=== PATIENT | female | born 1940 ===

== ENCOUNTER 2017-11-08 11:20 | Emergency (ER) | payer MEDICARE, MEDICAID ==
[2017-11-08 11:36] VITALS: PULSE 75; TEMP 97.8
[2017-11-08 12:11] LABS: HCG,QUALITATIVE URINE NEGATIVE (NEGATIVE)
[2017-11-08 12:37] LABS: PH,URINE 6 (5.0-8.0); URINE BILIRUBIN NEGATIVE (NEGATIVE); URINE BLOOD NEGATIVE (NEGATIVE); URINE CLARITY Clear (Clear); URINE COLOR YELLOW (YELLOW); URINE GLUCOSE (UA) NEGATIVE (Normal); URINE LEUKOCYTE ESTERASE NEGATIVE Leu/uL (Negative); URINE NITRATE NEGATIVE (NEGATIVE); URINE PROTEIN NEGATIVE (NEGATIVE); URINE UROBILINOGEN 0.2 mg/dL (0.2-1.0)
[2017-11-08 13:08] LABS: BASO % 0.5 % (0.0-2.0); EOS # 0.2 K/uL (0.0-0.7); EOS % 2.4 % (0.0-4.0); HEMOGLOBIN 12.9 g/dL (11.0-16.0); LYMPH # 2.3 K/uL (1.0-4.3); MEAN CORPUSCULAR HEMOGLOBIN 32.6 pg (27.0-31.0); MEAN CORPUSCULAR HGB CONC 34.7 g/dL (33.0-37.0); MEAN PLATELET VOLUME 8.7 fL (7.2-11.7); MONO # 0.4 K/uL (0.0-0.8); MONO % 4.4 % (0.0-10.0); NEUT # 6.6 K/uL (1.8-7.0); NEUT % 68.7 % (50.0-75.0); RBC 3.96 Mil/uL (3.80-5.20); RED CELL DISTRIBUTION WIDTH 13.3 % (11.5-14.5); WHITE BLOOD COUNT 9.6 K/uL (4.8-10.8)
[2017-11-08 13:22] LABS: ALB/GLOB RATIO 1.3 (1.0-2.1); ALBUMIN 3.9 g/dL (3.5-5.0); ALT/SGPT 19 U/L (9-52); AST/SGOT 22 U/L (14-36); BLOOD UREA NITROGEN 17 mg/dL (7-17); CALCIUM 8.6 mg/dl (8.6-10.4); GFR AFRICAN-AMERICAN > 60; GFR NON-AFRICAN AMERICAN > 60; LIPASE 127 U/L (23-300)
--- NOTE | 2017-11-08 14:36 | C.PDOC ---
History Of Present Illness 77-year-old female, presents to the emergency department with complaints of dysuria and suprapubic discomfort x3 days. Patient has a Hx of prior UTIs and states this feels similar. Denies fever, nausea/vomiting, diarrhea, or any other associated symptoms. No other complaints at this time. Time Seen by Provider: 11/08/17 11:55 Chief Complaint (Nursing): Female Genitourinary History Per: Patient History/Exam Limitations: no limitations Onset/Duration Of Symptoms: Days Current Symptoms Are (Timing): Still Present Severity: Moderate Past Medical History Reviewed: Historical Data, Nursing Documentation, Vital Signs Vital Signs: Last Vital Signs Temp 97.8 F 11/08/17 11:31 Pulse 75 11/08/17 15:01 Resp 16 11/08/17 15:01 BP 136/84 11/08/17 15:01 Pulse Ox 98 11/08/17 15:01 - Medical History PMH: Anxiety, Arthritis, Atrial Fibrillation, Diabetes, HTN, Osteoporosis, Rheumatoid Arthritis, TIA - [facility] Procedures IRRIGATION OF EAR (04/17/13) Family History: States: No Known Family Hx - Social History Hx Tobacco Use: No Hx Alcohol Use: No Hx Substance Use: No - Immunization History Hx Tetanus Toxoid Vaccination: No Hx Influenza Vaccination: No Hx Pneumococcal Vaccination: No Review Of Systems Except As Marked, All Systems Reviewed And Found Negative. Constitutional: Negative for: Fever, Chills Cardiovascular: Negative for: Chest Pain, Palpitations Respiratory: Negative for: Shortness of Breath Gastrointestinal: Negative for: Nausea, Vomiting, Abdominal Pain Genitourinary: Positive for: Dysuria, Pelvic Pain Musculoskeletal: Negative for: Back Pain Neurological: Negative for: Weakness, Numbness Physical Exam - Physical Exam Appears: Non-toxic, No Acute Distress Skin: Warm, Dry, No Rash Head: Atraumatic, Normacephalic Eye(s): bilateral: Normal Inspection, PERRL Nose: Normal Oral Mucosa: Moist Lips: Normal Appearing Neck: Normal ROM Chest: Symmetrical Cardiovascular: Rhythm Regular, No Murmur Respiratory: Normal Breath Sounds, No Accessory Muscle Use Gastrointestinal/Abdominal: Soft, Tenderness (Mild, suprapubic), No Guarding, No Rebound Back: No CVA Tenderness Extremity: Normal ROM Neurological/Psych: Oriented x3, Normal Speech ED Course And Treatment - Laboratory Results Result Diagrams: 11/08/17 13:04 01/31/18 13:04 O2 Sat by Pulse Oximetry: 100 (RA) Pulse Ox Interpretation: Normal Progress Note: Bloodwork and UA ordered and reviewed. Patient treated with PO Tylenol for pain Disposition Counseled Patient/Family Regarding: Studies Performed, Diagnosis, Need For Followup - Disposition Referrals: Kenn Gutierrez MD [Staff Provider] - Disposition: HOME/ ROUTINE Disposition Time: 14:35 Condition: STABLE Additional Instructions: FOLLOW UP WITH YOUR DOCTOR IN 1-2 DAYS USE MEDICATION DIRECTED RETURN TO EMERGENCY ROOM IF SYMPTOMS WORSEN SEGUIMIENTO CON PRESLEY MDICO EN 1-2 LAZCANO USE MEDICAMENTOS SEGN SE INDICA REGRESE AL BARTOLO DE EMERGENCIA SI LOS SNTOMAS EMPEORAN Prescriptions: Nitrofurantoin Macrocrystals [Macrobid] 1 cap PO BID #14 cap Phenazopyridine [Pyridium] 100 mg PO TID #9 tab Instructions: Dysuria (ED) Forms: [employer] (Haitian) Print Language: KITTITIAN - POA Present On Arrival: None - Clinical Impression Clinical Impression: Dysuria - Scribe Statement The provider has reviewed the documentation as recorded by the Scribe (Pili Bruce) All medical record entries made by the Scribe were at my direction and personally dictated by me. I have reviewed the chart and agree that the record accurately reflects my personal performance of the history, physical exam, medical decision making, and the department course for this patient. I have also personally directed, reviewed, and agree with the discharge instructions and disposition.
[2017-11-08 15:01] VITALS: BP 136/84; RESP 16
[2017-11-08 16:11] VITALS: O2SAT 100
== END 2017-11-08 15:01 | disposition home or self-care (01) ==
LOC: C.ER 11:20
DX: R30.0 Dysuria (principal); E11.9 Type 2 diabetes mellitus without complications; I48.91 Unspecified atrial fibrillation; I10 Essential (primary) hypertension; M06.9 Rheumatoid arthritis, unspecified; M81.0 Age-related osteoporosis without current pathological fracture

== ENCOUNTER 2017-12-21 09:26 | Day surgery (SDC) | payer MEDICARE, MEDICAID ==
[2017-12-21] MEDS ORDERED: Propofol 10 mg/ml Inj (20 ML) ONE ×2 (12:55→13:25)
[2017-12-21] MEDS ORDERED: Lactated Ringer's 1,000 ML IV ONE (12:58)
--- NOTE | 2017-12-21 12:58 | CP.SDSHP ---
Same Day Surgery H & P - History Proposed Procedure: colonoscopy Pre-Op Diagnosis: history of colon polyps - Previous Medical/Surgical History Cardiac: Hypertension Endocrine/Metabolic: Diabetes Comments: atrial fibrillation - Allergies Allergies: Allergies No Known Allergies Allergy (Verified 12/21/17 09:51) - Physical Exam General Appearance: NAD Vital Signs: Vital Signs 12/21/17 09:35 Temperature 97.3 F L Pulse Rate 59 L Respiratory 19 Rate Blood Pressure 151/60 H O2 Sat by Pulse 97 Oximetry Mental Status: Alert & Oriented x3 Neuro: WNL Heart: WNL Lungs: WNL GI: WNL - {Optional Preform as Required} Abdomen: WNL - Impression Pt. Evaluated Today:Candidate for Anesthesia & Procedure: Yes - Date & Time Date: 12/21/17 Time: 12:57 Short Stay Discharge - Short Stay Discharge Admitting Diagnosis/Reason for Visit: H/O COLON POLYPS Disposition: HOME/ ROUTINE
[2017-12-21 13:51] VITALS: TEMP 98; O2SAT 100
[2017-12-21 14:15] VITALS: BP 113/42; PULSE 60; RESP 16
== END 2017-12-21 14:38 | disposition home or self-care (01) ==
LOC: C.ENDO 09:26
PROVIDERS: ATTEND Internal Medicine Gastroenterology
DX: D12.2 Benign neoplasm of ascending colon (principal); D12.0 Benign neoplasm of cecum; E11.9 Type 2 diabetes mellitus without complications; I10 Essential (primary) hypertension; I48.91 Unspecified atrial fibrillation; K64.1 Second degree hemorrhoids; K57.30 Diverticulosis of large intestine without perforation or abscess without bleeding
CPT/HCPCS: 45380; 45385; 82948; 88305; J2704; J3010; J7120

== ENCOUNTER 2017-12-24 00:38 | Inpatient (IN) | payer MEDICARE, MEDICAID ==
[2017-12-24] MEDS ORDERED: Sodium Chloride 0.9% 500 ML IV STA (01:05)
[2017-12-24] MEDS ORDERED: HYDROmorphone 1 mg/ml ISec IVP STA ×2 (01:05→03:31)
[2017-12-24] MEDS ORDERED: Sodium Chloride 0.9% 1,000 ML ONE ×2 (01:15→07:48)
[2017-12-24] MEDS ORDERED: HYDROmorphone 1 mg/ml ISec ONE ×3 (01:15→07:48)
[2017-12-24] MEDS ORDERED: Iodixanol 320 MG/ML 100 ML BOTTLE IV ONE (01:25)
[2017-12-24 01:41] LABS: BASO # 0.1 K/uL (0.0-0.2); BASO % 0.5 % (0.0-2.0); EOS # 0.3 K/uL (0.0-0.7); EOS % 2.1 % (0.0-4.0); HEMOGLOBIN 13.1 g/dL (11.0-16.0); LYMPH # 3.7 K/uL (1.0-4.3); LYMPH % 25.8 % (20.0-40.0); MEAN CELL VOLUME 94.2 fL (81.0-99.0); MEAN CORPUSCULAR HEMOGLOBIN 31.4 pg (27.0-31.0); MEAN CORPUSCULAR HGB CONC 33.3 g/dL (33.0-37.0); MEAN PLATELET VOLUME 9.3 fL (7.2-11.7); MONO # 0.8 K/uL (0.0-0.8); MONO % 5.3 % (0.0-10.0); NEUT # 9.5 K/uL (1.8-7.0); NEUT % 66.3 % (50.0-75.0); RBC 4.16 Mil/uL (3.80-5.20); RED CELL DISTRIBUTION WIDTH 13.3 % (11.5-14.5); WHITE BLOOD COUNT 14.3 K/uL (4.8-10.8)
[2017-12-24 01:48] LABS: INR 1.2; PROTHROMBIN TIME 13.2 SECONDS (9.7-12.2)
[2017-12-24 01:51] LABS: CALCIUM 9.1 mg/dl (8.6-10.4); GFR AFRICAN-AMERICAN > 60; GFR NON-AFRICAN AMERICAN > 60; LIPASE 140 U/L (23-300)
[2017-12-24 01:54] LABS: ALB/GLOB RATIO 1.2 (1.0-2.1); ALBUMIN 4.2 g/dL (3.5-5.0); ALT/SGPT 20 U/L (9-52); AST/SGOT 39 U/L (14-36); BLOOD UREA NITROGEN 15 mg/dL (7-17)
--- NOTE | 2017-12-24 03:10 | C.PDOC ---
History Of Present Illness Patient c/o severe abdominal pain and vomiting started 3 days ago after Colonoscopy. Patient sts she had routine colonoscopy by on 12/21/2017. patient developed cramping apain and vatery diarrhea right after the procedure. As per patient diarrhea spontaneously stopped, but abdominal pain continues and got worse couple of hours prior to arrival and associated with nausea/vomiting. Chief Complaint (Nursing): GI Problem History Per: Patient, Family History/Exam Limitations: no limitations Onset/Duration Of Symptoms: Days (3) Current Symptoms Are (Timing): Worse Pain Scale Rating Of: 10 Location Of Pain/Discomfort: Other (generalized) Quality Of Discomfort: "Pain" Associated Symptoms: Nausea, Vomiting Exacerbating Factors: None Past Medical History Reviewed: Historical Data, Nursing Documentation, Vital Signs Vital Signs: Last Vital Signs Temp 97.5 F L 12/24/17 06:17 Pulse 68 12/24/17 06:17 Resp 18 12/24/17 06:17 BP 176/70 H 12/24/17 06:17 Pulse Ox 100 12/24/17 06:47 - Medical History PMH: Anxiety, Arthritis, Atrial Fibrillation, Cardia Arrhythmia (AFIB), Diabetes , HTN, Hypercholesterolemia, Osteoporosis, Rheumatoid Arthritis, TIA Denies: Chronic Kidney Disease Surgical History: Endoscopy - [facility] Procedures IRRIGATION OF EAR (04/17/13) Family History: States: Unknown Family Hx - Social History Hx Tobacco Use: No Hx Alcohol Use: No Hx Substance Use: No - Immunization History Hx Tetanus Toxoid Vaccination: No Hx Influenza Vaccination: No Hx Pneumococcal Vaccination: No Review Of Systems Except As Marked, All Systems Reviewed And Found Negative. Physical Exam - Physical Exam Appears: In Acute Distress (painful, crying from pain) Skin: Normal Color, No Rash Head: Atraumatic, Normacephalic Eye(s): bilateral: Normal Inspection Neck: Normal, Normal ROM Chest: Symmetrical, No Deformity, No Tenderness Cardiovascular: Rhythm Irregular Respiratory: Normal Breath Sounds Gastrointestinal/Abdominal: Tenderness (periumbilical), Guarding Neurological/Psych: Oriented x3, Normal Speech, Normal Cognition ED Course And Treatment - Laboratory Results Result Diagrams: 12/24/17 01:33 12/24/17 01:33 O2 Sat by Pulse Oximetry: 100 - CT Scan/US RUQ US Other Rad Studies (CT/US): Read By Radiologist, Radiology Report Reviewed CT/US Interpretation: EXAM: US Abdomen Limited, Right Upper Quadrant. CLINICAL HISTORY: 77 years old, female; Pain; Abdominal pain; Flank; Right upper quadrant (ruq). TECHNIQUE: Real-time ultrasound of the right upper quadrant with image documentation. COMPARISON: CT - ABD PELVIS IV CONTRAST ONLY 2017-12-24 02:55. FINDINGS: Liver: Unremarkable. No mass. No intrahepatic bile duct dilation. Gallbladder: There is a 12 mm gallstone non- mobile gallbladder neck. Positive Gipson's sign. The. gallbladder wall is mildly thickened measuring 4-5 mm. There may be a trace amount of. pericholecystic fluid. Common bile duct: Mildly dilated common bile duct measuring 6 mm No stones. Pancreas: Unremarkable as visualized. The tail is not well-visualized. Mildly dilated pancreatic duct. measuring 2 mm. Right kidney: Unremarkable measuring 10.5 cm. No stones. No solid mass. No hydronephrosis. IMPRESSION: Findings suggest acute cholecystitis. 12 mm stone lodged in the gallbladder neck. Gallbladder wall. thickening and trace pericholecystic fluid. Mild common bile duct dilation without definite stone. Thank you for allowing us to participate in the care of your patient. Dictated and Authenticated by: Kourtney Duncan MD. 12/24/2017 6:38 AM Eastern Time ( [place] & [place]) CT of abdomen/pelvis Other Rad Studies (CT/US): Read By Radiologist, Radiology Report Reviewed CT/US Interpretation: EXAM: CT Abdomen and Pelvis With Intravenous Contrast. CLINICAL HISTORY: 77 years old, female; Pain; Abdominal pain; Prior surgery; Surgery type: Colonoscopy 2 days ago;. Patient HX: 08-02-13; Additional info: Severe abd pain, S/P colonoscopy x 2 days ago. TECHNIQUE: Axial computed tomography images of the abdomen and pelvis with intravenous contrast. All CT. scans at this facility use one or more dose reduction techniques, viz.: automated exposure control;. ma/kV adjustment per patient size (including targeted exams where dose is matched to indication; i.e. head); or iterative reconstruction technique. Coronal and sagittal reformatted images were created and reviewed. CONTRAST: 100 mL of [id number] administered intravenously. COMPARISON: CT - ABD PELVIS IV CONTRAST ONLY 2013-08-02 04:49. FINDINGS: Lower thorax: A small hiatal hernia is present. ABDOMEN: Liver: Unremarkable. No mass. Gallbladder and bile ducts: 11 mm gallbladder neck stone and mildly distended gallbladder. No. ductal dilation. Pancreas: Unremarkable. No mass. No ductal dilation. Spleen: Unremarkable. No splenomegaly. Adrenals: Unremarkable. No mass. Kidneys and ureters: 2 mm stone in the lower pole of the right kidney.The left kidney is normal. No solid mass. No hydronephrosis. Stomach and bowel: Mild diverticulosis is present in the sigmoid and descending colon. There is a. midline ventral hernia containing small bowel and fat. No bowel obstruction. No mucosal thickening. Appendix: No findings to suggest acute appendicitis. PELVIS: Bladder: Unremarkable. No mass. Reproductive: Unremarkable as visualized. ABDOMEN and PELVIS: Intraperitoneal space: Unremarkable. No free air. No significant fluid collection. Bones/joints: Osteopenia. Levoscoliosis and degenerative changes. No acute fracture. No. dislocation. Vasculature: The vasculature demonstrates diffuse mild atherosclerotic calcification. No abdominal. aortic aneurysm. Lymph nodes: Small retroperitoneal lymph nodes. No enlarged lymph nodes. IMPRESSION: Distended gallbladder and gallbladder neck stone. Clinical correlation with laboratory values. recommended. Followup right upper quadrant ultrasound if clinically indicated. Diverticulosis without acute diverticulitis. Thank you for allowing us to participate in the care of your patient. Dictated and Authenticated by: Kourtney Duncan MD. 12/24/2017 3:48 AM Eastern Time ([place] & [place]). Striking right renal stone. Progress Note: labs, CT abdomen/pelvis with IV contrast, Dilaudid IV x 2, Zofran IV x 2, Zosyn IV. CT and RUQ US shows evidence of acute cholecystitis. 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 Spoke with who wants her to be seen by surgery resident. Disposition - Disposition Disposition: HOSPITALIZED Disposition Time: 07:09 Condition: FAIR Forms: [facility] (Palestinian) - Clinical Impression Clinical Impression: Acute cholecystitis Physician Patient Turnover Patient Signed Over To: April Rojas Handoff Comments: Surgery resident consult, dispo
--- NOTE | 2017-12-24 03:49 | CT ---
EXAM: CT Abdomen and Pelvis With Intravenous Contrast CLINICAL HISTORY: 77 years old, female; Pain; Abdominal pain; Prior surgery; Surgery type: Colonoscopy 2 days ago; Patient HX: 08-02-13; Additional info: Severe abd pain, S/P colonoscopy x 2 days ago TECHNIQUE: Axial computed tomography images of the abdomen and pelvis with intravenous contrast. All CT scans at this facility use one or more dose reduction techniques, viz.: automated exposure control; ma/kV adjustment per patient size (including targeted exams where dose is matched to indication; i.e. head); or iterative reconstruction technique. Coronal and sagittal reformatted images were created and reviewed. CONTRAST: 100 mL of [id number] administered intravenously. COMPARISON: CT - ABD PELVIS IV CONTRAST ONLY 2013-08-02 04:49 FINDINGS: Lower thorax: A small hiatal hernia is present. ABDOMEN: Liver: Unremarkable. No mass. Gallbladder and bile ducts: 11 mm gallbladder neck stone and mildly distended gallbladder. No ductal dilation. Pancreas: Unremarkable. No mass. No ductal dilation. Spleen: Unremarkable. No splenomegaly. Adrenals: Unremarkable. No mass. Kidneys and ureters: 2 mm stone in the lower pole of the right kidney.The left kidney is normal. No solid mass. No hydronephrosis. Stomach and bowel: Mild diverticulosis is present in the sigmoid and descending colon. There is a midline ventral hernia containing small bowel and fat. No bowel obstruction. No mucosal thickening. Appendix: No findings to suggest acute appendicitis. PELVIS: Bladder: Unremarkable. No mass. Reproductive: Unremarkable as visualized. ABDOMEN and PELVIS: Intraperitoneal space: Unremarkable. No free air. No significant fluid collection. Bones/joints: Osteopenia. Levoscoliosis and degenerative changes. No acute fracture. No dislocation. Vasculature: The vasculature demonstrates diffuse mild atherosclerotic calcification. No abdominal aortic aneurysm. Lymph nodes: Small retroperitoneal lymph nodes. No enlarged lymph nodes. IMPRESSION: Distended gallbladder and gallbladder neck stone. Clinical correlation with laboratory values recommended. Followup right upper quadrant ultrasound if clinically indicated. Diverticulosis without acute diverticulitis. Striking right renal stone.
[2017-12-24] MEDS ORDERED: Piperacill/Tazo 3.375gm in Dex 3.375 GM/50 ML BAG IVPB STA (04:57)
[2017-12-24] MEDS: Piperacillin/Tazobact 3.375 gm 100 ML IV STA ×2 (05:00→05:44)
[2017-12-24 05:17] LABS: GRANULAR CAST 1 /lpf (0-1); SQUAMOUS EPITHIAL < 1 /hpf (0-5); URINE BACTERIA RARE (<OCC); URINE BILIRUBIN NEGATIVE (NEGATIVE); URINE BLOOD NEGATIVE (NEGATIVE); URINE CLARITY Hazy (Clear); URINE COLOR Yellow (YELLOW); URINE GLUCOSE (UA) NORMAL (Normal); URINE LEUKOCYTE ESTERASE 2+ Leu/uL (Negative); URINE PROTEIN NEGATIVE (NEGATIVE); URINE UROBILINOGEN NORMAL mg/dL (0.2-1.0)
--- NOTE | 2017-12-24 06:39 | US ---
EXAM: US Abdomen Limited, Right Upper Quadrant CLINICAL HISTORY: 77 years old, female; Pain; Abdominal pain; Flank; Right upper quadrant (ruq) TECHNIQUE: Real-time ultrasound of the right upper quadrant with image documentation. COMPARISON: CT - ABD PELVIS IV CONTRAST ONLY 2017-12-24 02:55 FINDINGS: Liver: Unremarkable. No mass. No intrahepatic bile duct dilation. Gallbladder: There is a 12 mm gallstone non-mobile gallbladder neck. Positive Gipson's sign. The gallbladder wall is mildly thickened measuring 4-5 mm. There may be a trace amount of pericholecystic fluid. Common bile duct: Mildly dilated common bile duct measuring 6 mm No stones. Pancreas: Unremarkable as visualized. The tail is not well-visualized. Mildly dilated pancreatic duct measuring 2 mm. Right kidney: Unremarkable measuring 10.5 cm. No stones. No solid mass. No hydronephrosis. IMPRESSION: Findings suggest acute cholecystitis. 12 mm stone lodged in the gallbladder neck. Gallbladder wall thickening and trace pericholecystic fluid. Mild common bile duct dilation without definite stone.
[2017-12-24] MEDS ORDERED: HYDROmorphone 1 mg/ml ISec IVP PRN (07:40)
[2017-12-24] MEDS ORDERED: Piperacillin/Tazobact 3.375 GM in Sodium Chloride 100 ML IVPB SCH (07:45)
[2017-12-24] MEDS: Sodium Chloride 0.9% 1,000 ML IV SCH ×2 (07:50→17:04)
--- NOTE | 2017-12-24 09:00 | RAD ---
PROCEDURE: CHEST RADIOGRAPH, 1 VIEW HISTORY: abd pain COMPARISON: 05/30/2015 FINDINGS: LUNGS: Clear. PLEURA: No pneumothorax or pleural fluid seen. CARDIOVASCULAR: Normal. OSSEOUS STRUCTURES: No significant abnormalities. VISUALIZED UPPER ABDOMEN: Normal. OTHER FINDINGS: None. IMPRESSION: No active disease.
--- NOTE | 2017-12-24 09:09 | CP.PCM.CON ---
History of Present Illness - History of Present Illness History of Present Illness: SURGERY CONSULT NOTE FOR DR. ROSE 77F presents to [facility] for abdominal pain. Pain began 4 days ago and has been getting progressively worse. Pain is mostly in the right upper quadrant and does not radiate. She states pain is associated with nausea and vomiting, emesis consist of bilious fluid, non bloody. She denies any fevers or chills, denies any change in her bowel movements. She admits that she has not been able to tolerate diet for the last day or so. PMH: Anxiety, Arthritis, Atrial Fibrillation, Cardia Arrhythmia (AFIB), Diabetes , HTN, Hypercholesterolemia, Osteoporosis, Rheumatoid Arthritis, TIA PSH: hysterectomy Social: denies tobacco, alcohol, illicit Allergies: NKDA Past Patient History - Infectious Disease Hx of Infectious Diseases: None - Past Medical History & Family History Past Medical History?: Yes - Past Social History Smoking Status: Never Smoked - CARDIAC Hx Atrial Fibrillation: Yes Hx Cardia Arrhythmia: Yes (AFIB) Hx Hypercholesterolemia: Yes Hx Hypertension: Yes - PULMONARY Hx Respiratory Disorders: No - NEUROLOGICAL Hx Transient Ischemic Attacks (TIA): Yes - HEENT Hx HEENT Problems: No - RENAL Hx Chronic Kidney Disease: No - ENDOCRINE/METABOLIC Hx Endocrine Disorders: Yes Hx Diabetes Mellitus Type 2: Yes - HEMATOLOGICAL/ONCOLOGICAL Hx Blood Disorders: No - INTEGUMENTARY Hx Dermatological Problems: No - MUSCULOSKELETAL/RHEUMATOLOGICAL Hx Arthritis: Yes Hx Osteoporosis: Yes Hx Rheumatoid Arthritis: Yes - GASTROINTESTINAL Hx Gastrointestinal Disorders: Yes Hx Gastroesophageal Reflux: Yes - GENITOURINARY/GYNECOLOGICAL Hx Genitourinary Disorders: No - PSYCHIATRIC Hx Anxiety: Yes Hx Substance Use: No - SURGICAL HISTORY Hx Surgeries: Yes Hx Herniorrhaphy: Yes Hx Hysterectomy: Yes (20 years ago) Hx Tubal Ligation: Yes Other/Comment: COLONSCOPY - ANESTHESIA Hx Anesthesia: Yes Hx Anesthesia Reactions: Yes (VOMITING) Hx Malignant Hyperthermia: No Meds Allergies/Adverse Reactions: Allergies Allergy/AdvReac Type Severity Reaction Status Date / Time No Known Allergies Allergy Verified 12/24/17 00:54 - Medications Medications: Current Medications Hydromorphone HCl (Dilaudid) 1 mg IVP Q4H PRN PRN Reason: Pain, severe (8-10) Last Admin: 12/24/17 07:50 Dose: 1 mg Sodium Chloride (Sodium Chloride 0.9%) 1,000 mls @ 100 mls/hr IV .Q10H MARCO Last Admin: 12/24/17 07:50 Dose: 100 mls/hr Piperacillin Sod/Tazobactam Sod (Zosyn 3.375 Gm Iv Premix) 3.375 gm in 50 mls @ 100 mls/hr IVPB Q8H MARCO PRN Reason: Protocol Ondansetron HCl (Zofran Inj) 4 mg IVP Q4 PRN PRN Reason: Nausea/Vomiting Last Admin: 12/24/17 07:50 Dose: 4 mg Pantoprazole Sodium (Protonix Inj) 40 mg IVP DAILY [facility] Physical Exam - Constitutional Appears: Well, Non-toxic, No Acute Distress Additional comments: uncomfortable due to pain - Eye Exam Eye Exam: EOMI, PERRL - ENT Exam ENT Exam: Mucous Membranes Moist - Respiratory Exam Respiratory Exam: Clear to Auscultation Bilateral, NORMAL BREATHING PATTERN - Cardiovascular Exam Cardiovascular Exam: REGULAR RHYTHM, +S1, +S2 - GI/Abdominal Exam GI & Abdominal Exam: Soft, Tenderness (moderate pain especially in the RUQ). absent: Distended, Firm, Guarding, Rebound, Rigid - Extremities Exam Extremities exam: Negative for: pedal edema, tenderness - Neurological Exam Neurological exam: Alert, Oriented x3 - Psychiatric Exam Psychiatric exam: Normal Affect, Normal Mood - Skin Skin Exam: Dry, Intact, Normal Color, Warm Results - Vital Signs Recent Vital Signs: Last Vital Signs Temp 97.6 F 12/24/17 07:33 Pulse 69 12/24/17 07:33 Resp 20 12/24/17 07:33 BP 159/77 H 12/24/17 07:33 Pulse Ox 98 12/24/17 07:33 - Labs Result Diagrams: 12/24/17 01:33 12/24/17 01:33 Labs: Laboratory Results - last 24 hr 12/24/17 12/24/17 12/24/17 01:33 01:33 01:33 WBC 14.3 H RBC 4.16 Hgb 13.1 Hct 39.2 MCV 94.2 MCH 31.4 H MCHC 33.3 RDW 13.3 Plt Count 322 MPV 9.3 Neut % (Auto) 66.3 Lymph % (Auto) 25.8 [place] % (Auto) 5.3 Eos % (Auto) 2.1 Baso % (Auto) 0.5 Neut # (Auto) 9.5 H Lymph # (Auto) 3.7 [place] # (Auto) 0.8 Eos # (Auto) 0.3 Baso # (Auto) 0.1 PT 13.2 H INR 1.2 APTT 34 Sodium 139 Potassium 5.8 H Chloride 103 Carbon Dioxide 22 Anion Gap 21 H BUN 15 Creatinine 0.5 L Est GFR ( Amer) > 60 Est GFR (Non-Af Amer) > 60 Random Glucose 182 H Calcium 9.1 Total Bilirubin 0.9 AST 39 H D ALT 20 Alkaline Phosphatase 68 Total Protein 7.8 Albumin 4.2 Globulin 3.6 Albumin/Globulin Ratio 1.2 Lipase 140 Urine Color Urine Clarity Urine pH Ur Specific [place] Urine Protein Urine Glucose (UA) Urine Ketones Urine Blood Urine Nitrate Urine Bilirubin Urine Urobilinogen Ur Leukocyte Esterase Urine WBC (Auto) Urine RBC (Auto) Ur Squamous Epith Cells Urine Bacteria Hyaline Casts Granular Casts (Auto) 12/24/17 05:07 WBC RBC Hgb Hct MCV MCH MCHC RDW Plt Count MPV Neut % (Auto) Lymph % (Auto) [place] % (Auto) Eos % (Auto) Baso % (Auto) Neut # (Auto) Lymph # (Auto) [place] # (Auto) Eos # (Auto) Baso # (Auto) PT INR APTT Sodium Potassium Chloride Carbon Dioxide Anion Gap BUN Creatinine Est GFR ( Amer) Est GFR (Non-Af Amer) Random Glucose Calcium Total Bilirubin AST ALT Alkaline Phosphatase Total Protein Albumin Globulin Albumin/Globulin Ratio Lipase Urine Color Yellow Urine Clarity Hazy Urine pH 5.0 Ur Specific [place] 1.033 H Urine Protein Negative Urine Glucose (UA) Normal Urine Ketones Trace Urine Blood Negative Urine Nitrate Negative Urine Bilirubin Negative Urine Urobilinogen Normal Ur Leukocyte Esterase 2+ H Urine WBC (Auto) 57 H Urine RBC (Auto) 1 Ur Squamous Epith Cells < 1 Urine Bacteria Rare Hyaline Casts 6-10 H Granular Casts (Auto) 1 Assessment & Plan - Assessment and Plan (Free Text) Assessment: 77F presents with acute cholecystitis CT: Distended GB, stone at neck of gallbladder US: Acute cholecystitis, mild CBD dilatation, no definitely choledocho Plan: NPO, Pain control IVF, Antibiotics Repeat labs tomm AM Cardiac consult - recent catherization Further recs discuss with Dr. Eladio Christianson, PGY2
[2017-12-24 09:40] LABS: BLOOD UREA NITROGEN 11 mg/dL (7-17); CALCIUM 7.8 mg/dl (8.6-10.4); GFR AFRICAN-AMERICAN > 60; GFR NON-AFRICAN AMERICAN > 60
--- NOTE | 2017-12-24 09:46 | CP.PCM.HP ---
<Sandi Hartman - Last Filed: 12/24/17 16:24> History of Present Illness - History of Present Illness History of Present Illness: CC: Abdominal pain 77 year old female with past medical history hypertension, diabetes, hyperlipidemia, anxiety, and atrial fibrillation on Eliquis presents to the ED with abdominal pain and vomiting. History per patient's daughter, patient's abdominal pain started on 12/21/17 shortly after having a colonoscopy with Dr. Friend. The pain is located right upper abdominal quadrant and epigastrium. Patient tried taking over the counter Pepto-Bismol without relief. The abdominal pain became worse last night and the patient started vomiting several times which prompted patient to come to the ED. Daughter reports the vomits were yellow in color, no blood were seen. Patient denies having fever, headache , shortness of breath, chest pain, or urinary symptoms. Patient recently had a cardiac cath at [facility] with Dr. Issa. Daughter [phone] PMD: Dr. Gutierrez PMHx: TIA, HTN, DM, anxiety, hyperlipidemia PSHx: hernia repair, hysterectomy, tubal ligation Allergy: none Social: denies tobacco, alcohol or drug use Home Meds: eliquis, coreg, amaryl, omerazole, pravastatin, tramadol, diovan, ambien Present on Admission - Present on Admission Any Indicators Present on Admission: No Review of Systems - Constitutional Constitutional: As Per HPI. absent: Chills, Fever - EENT Eyes: As Per HPI. absent: Blurred Vision, Change in Vision, Irritation Ears: As Per HPI. absent: Decreased Hearing, Dizziness Nose/Mouth/Throat: As Per HPI. absent: Epistaxis, Nasal Congestion, Nasal Trauma - Cardiovascular Cardiovascular: As Per HPI. absent: Chest Pain, Syncope - Respiratory Respiratory: As Per HPI. absent: Cough, Dyspnea, Wheezing - Gastrointestinal Gastrointestinal: As Per HPI, Abdominal Pain, Nausea, Vomiting. absent: Diarrhea, Heartburn - Genitourinary Genitourinary: As Per HPI. absent: Flank Pain, Hematuria, Urinary Frequency - Musculoskeletal Musculoskeletal: As Per HPI. absent: Deformity, Tingling - Integumentary Integumentary: As Per HPI. absent: Acne, Erythema - Neurological Neurological: As Per HPI. absent: Abnormal Gait, Abnormal Hearing, Dizziness - Psychiatric Psychiatric: As Per HPI. absent: Confusion, Hallucinations - Endocrine Endocrine: As Per HPI Past Patient History - Infectious Disease Hx of Infectious Diseases: None - Past Medical History & Family History Past Medical History?: Yes - Past Social History Smoking Status: Never Smoked - CARDIAC Hx Atrial Fibrillation: Yes Hx Cardia Arrhythmia: Yes (AFIB) Hx Hypercholesterolemia: Yes Hx Hypertension: Yes - PULMONARY Hx Respiratory Disorders: No - NEUROLOGICAL Hx Transient Ischemic Attacks (TIA): Yes - HEENT Hx HEENT Problems: No - RENAL Hx Chronic Kidney Disease: No - ENDOCRINE/METABOLIC Hx Endocrine Disorders: Yes Hx Diabetes Mellitus Type 2: Yes - HEMATOLOGICAL/ONCOLOGICAL Hx Blood Disorders: No - INTEGUMENTARY Hx Dermatological Problems: No - MUSCULOSKELETAL/RHEUMATOLOGICAL Hx Arthritis: Yes Hx Osteoporosis: Yes Hx Rheumatoid Arthritis: Yes - GASTROINTESTINAL Hx Gastrointestinal Disorders: Yes Hx Gastroesophageal Reflux: Yes - GENITOURINARY/GYNECOLOGICAL Hx Genitourinary Disorders: No - PSYCHIATRIC Hx Anxiety: Yes Hx Substance Use: No - SURGICAL HISTORY Hx Surgeries: Yes Hx Herniorrhaphy: Yes Hx Hysterectomy: Yes (20 years ago) Hx Tubal Ligation: Yes Other/Comment: COLONSCOPY - ANESTHESIA Hx Anesthesia: Yes Hx Anesthesia Reactions: Yes (VOMITING) Hx Malignant Hyperthermia: No Meds Allergies/Adverse Reactions: Allergies Allergy/AdvReac Type Severity Reaction Status Date / Time No Known Allergies Allergy Verified 12/24/17 00:54 Physical Exam - Constitutional Appears: No Acute Distress - Head Exam Head Exam: ATRAUMATIC - Eye Exam Eye Exam: EOMI, Normal appearance - ENT Exam ENT Exam: Mucous Membranes Moist - Respiratory Exam Respiratory Exam: Clear to Auscultation Bilateral, NORMAL BREATHING PATTERN. absent: Respiratory Distress - Cardiovascular Exam Cardiovascular Exam: +S1, +S2. absent: Diastolic murmur, Systolic Murmur - GI/Abdominal Exam GI & Abdominal Exam: Soft, Tenderness. absent: Distended - Extremities Exam Extremities exam: Positive for: normal inspection - Neurological Exam Neurological exam: Alert, Oriented x3 - Psychiatric Exam Psychiatric exam: Normal Affect, Normal Mood - Skin Skin Exam: Dry, Warm Results - Vital Signs Recent Vital Signs: Last Vital Signs Temp 97.6 F 12/24/17 07:33 Pulse 68 12/24/17 09:15 Resp 20 12/24/17 09:15 BP 150/72 12/24/17 09:15 Pulse Ox 98 12/24/17 09:15 - Labs Result Diagrams: 12/24/17 01:33 12/24/17 09:11 Labs: Laboratory Results - last 24 hr 12/24/17 12/24/17 12/24/17 01:33 01:33 01:33 WBC 14.3 H RBC 4.16 Hgb 13.1 Hct 39.2 MCV 94.2 MCH 31.4 H MCHC 33.3 RDW 13.3 Plt Count 322 MPV 9.3 Neut % (Auto) 66.3 Lymph % (Auto) 25.8 [place] % (Auto) 5.3 Eos % (Auto) 2.1 Baso % (Auto) 0.5 Neut # (Auto) 9.5 H Lymph # (Auto) 3.7 [place]ran # (Auto) 0.8 Eos # (Auto) 0.3 Baso # (Auto) 0.1 PT 13.2 H INR 1.2 APTT 34 Sodium 139 Potassium 5.8 H Chloride 103 Carbon Dioxide 22 Anion Gap 21 H BUN 15 Creatinine 0.5 L Est GFR ( Amer) > 60 Est GFR (Non-Af Amer) > 60 Random Glucose 182 H Calcium 9.1 Total Bilirubin 0.9 AST 39 H D ALT 20 Alkaline Phosphatase 68 Total Protein 7.8 Albumin 4.2 Globulin 3.6 Albumin/Globulin Ratio 1.2 Lipase 140 Urine Color Urine Clarity Urine pH Ur Specific [place] Urine Protein Urine Glucose (UA) Urine Ketones Urine Blood Urine Nitrate Urine Bilirubin Urine Urobilinogen Ur Leukocyte Esterase Urine WBC (Auto) Urine RBC (Auto) Ur Squamous Epith Cells Urine Bacteria Hyaline Casts Granular Casts (Auto) 12/24/17 12/24/17 05:07 09:11 WBC RBC Hgb Hct MCV MCH MCHC RDW Plt Count MPV Neut % (Auto) Lymph % (Auto) [place] % (Auto) Eos % (Auto) Baso % (Auto) Neut # (Auto) Lymph # (Auto) [place] # (Auto) Eos # (Auto) Baso # (Auto) PT INR APTT Sodium 138 Potassium 4.0 Chloride 105 Carbon Dioxide 25 Anion Gap 13 BUN 11 Creatinine 0.4 L Est GFR ( Amer) > 60 Est GFR (Non-Af Amer) > 60 Random Glucose 133 H Calcium 7.8 L Total Bilirubin AST ALT Alkaline Phosphatase Total Protein Albumin Globulin Albumin/Globulin Ratio Lipase Urine Color Yellow Urine Clarity Hazy Urine pH 5.0 Ur Specific [place] 1.033 H Urine Protein Negative Urine Glucose (UA) Normal Urine Ketones Trace Urine Blood Negative Urine Nitrate Negative Urine Bilirubin Negative Urine Urobilinogen Normal Ur Leukocyte Esterase 2+ H Urine WBC (Auto) 57 H Urine RBC (Auto) 1 Ur Squamous Epith Cells < 1 Urine Bacteria Rare Hyaline Casts 6-10 H Granular Casts (Auto) 1 Assessment & Plan - Assessment and Plan (Free Text) Assessment: Acute cholecystitis -Abd U/S showed findings suggesting acute cholecystitis. Mild common bile duct dilation without definite stone -Abd CT showed distended gallbladder and gallbladder neck stone (see report) -Dilaudid 1mg IV Q4 prn -NS @100ml/hr -Zofran 4mg IV Q4 prn -Zosyn 3.375gm IV Q8 -Surgery consult, Dr. Hendricks help appreciated -NPO, planning for OR -Cardiac clearance by Dr. Issa: cleared for surgery low to intermediate cardiac risk Leukocytosis -WBC 14.3 -Afebrile -Zosyn 3.375gm IV Q8 -Follow up blood and urine cultures DM -FS ACHS -ISS Prophylactic measures -Protonix IV -SCD -Hold home meds due NPO for surgery Discussed with attending Dr. Arias <Renny Arias - Last Filed: 12/24/17 19:09> Results - Vital Signs Recent Vital Signs: Last Vital Signs Temp 97.7 F 12/24/17 15:00 Pulse 61 12/24/17 15:00 Resp 20 12/24/17 15:00 BP 129/61 12/24/17 15:00 Pulse Ox 96 12/24/17 15:00 - Labs Result Diagrams: 12/24/17 01:33 12/24/17 09:11 Labs: Laboratory Results - last 24 hr 12/24/17 12/24/17 12/24/17 01:33 01:33 01:33 WBC 14.3 H RBC 4.16 Hgb 13.1 Hct 39.2 MCV 94.2 MCH 31.4 H MCHC 33.3 RDW 13.3 Plt Count 322 MPV 9.3 Neut % (Auto) 66.3 Lymph % (Auto) 25.8 [place]ran % (Auto) 5.3 Eos % (Auto) 2.1 Baso % (Auto) 0.5 Neut # (Auto) 9.5 H Lymph # (Auto) 3.7 [place] # (Auto) 0.8 Eos # (Auto) 0.3 Baso # (Auto) 0.1 PT 13.2 H INR 1.2 APTT 34 Sodium 139 Potassium 5.8 H Chloride 103 Carbon Dioxide 22 Anion Gap 21 H BUN 15 Creatinine 0.5 L Est GFR ( Amer) > 60 Est GFR (Non-Af Amer) > 60 POC Glucose (mg/dL) Random Glucose 182 H Calcium 9.1 Total Bilirubin 0.9 AST 39 H D ALT 20 Alkaline Phosphatase 68 Total Protein 7.8 Albumin 4.2 Globulin 3.6 Albumin/Globulin Ratio 1.2 Lipase 140 Urine Color Urine Clarity Urine pH Ur Specific [place] Urine Protein Urine Glucose (UA) Urine Ketones Urine Blood Urine Nitrate Urine Bilirubin Urine Urobilinogen Ur Leukocyte Esterase Urine WBC (Auto) Urine RBC (Auto) Ur Squamous Epith Cells Urine Bacteria Hyaline Casts Granular Casts (Auto) 12/24/17 12/24/17 12/24/17 05:07 09:11 11:30 WBC RBC Hgb Hct MCV MCH MCHC RDW Plt Count MPV Neut % (Auto) Lymph % (Auto) [place] % (Auto) Eos % (Auto) Baso % (Auto) Neut # (Auto) Lymph # (Auto) [place] # (Auto) Eos # (Auto) Baso # (Auto) PT INR APTT Sodium 138 Potassium 4.0 Chloride 105 Carbon Dioxide 25 Anion Gap 13 BUN 11 Creatinine 0.4 L Est GFR ( Amer) > 60 Est GFR (Non-Af Amer) > 60 POC Glucose (mg/dL) 107 Random Glucose 133 H Calcium 7.8 L Total Bilirubin AST ALT Alkaline Phosphatase Total Protein Albumin Globulin Albumin/Globulin Ratio Lipase Urine Color Yellow Urine Clarity Hazy Urine pH 5.0 Ur Specific [place] 1.033 H Urine Protein Negative Urine Glucose (UA) Normal Urine Ketones Trace Urine Blood Negative Urine Nitrate Negative Urine Bilirubin Negative Urine Urobilinogen Normal Ur Leukocyte Esterase 2+ H Urine WBC (Auto) 57 H Urine RBC (Auto) 1 Ur Squamous Epith Cells < 1 Urine Bacteria Rare Hyaline Casts 6-10 H Granular Casts (Auto) 1 12/24/17 16:21 WBC RBC Hgb Hct MCV MCH MCHC RDW Plt Count MPV Neut % (Auto) Lymph % (Auto) [place]ran % (Auto) Eos % (Auto) Baso % (Auto) Neut # (Auto) Lymph # (Auto) [place]ran # (Auto) Eos # (Auto) Baso # (Auto) PT INR APTT Sodium Potassium Chloride Carbon Dioxide Anion Gap BUN Creatinine Est GFR ( Amer) Est GFR (Non-Af Amer) POC Glucose (mg/dL) 90 Random Glucose Calcium Total Bilirubin AST ALT Alkaline Phosphatase Total Protein Albumin Globulin Albumin/Globulin Ratio Lipase Urine Color Urine Clarity Urine pH Ur Specific [place] Urine Protein Urine Glucose (UA) Urine Ketones Urine Blood Urine Nitrate Urine Bilirubin Urine Urobilinogen Ur Leukocyte Esterase Urine WBC (Auto) Urine RBC (Auto) Ur Squamous Epith Cells Urine Bacteria Hyaline Casts Granular Casts (Auto) Attending/Attestation - Attestation I have personally seen and examined this patient.: Yes I have fully participated in the care of the patient.: Yes I have reviewed all pertinent clinical information: Yes Notes (Text): patient was seen and examined in the ER. Discussed with her daughter at bedside. patient was complaining of abdominal pain and nausea.s/p colonoscopy. Afib was on Eliquis which was held for colonoscopy and resumed yesterday. Took one dose last night She is afebrile,has wbc ,urine with wbc and leukocyte esterase.follow cultures on examination she has soft abdomen, epigastria tenderness,no guarding,no rigidity. continue zosyn,NPO,follow surgery. DR issa for cardiology clearance. GI consult Discussed with the resident. I agree withe the documentation of the resident's assessment and the plan 12/24/17 19:09
[2017-12-24] MEDS: (Novolin R) Insulin Human Regular 100 units/ml vial SC SCH ×3 (12:26→22:07)
[2017-12-24] MEDS: HYDROmorphone 0.5 mg/0.5 ml ISec IVP PRN ×2 (12:26→16:48)
--- NOTE | 2017-12-24 12:42 | CP.PCM.CON ---
<Darlene Pyle - Last Filed: 12/24/17 12:48> History of Present Illness - History of Present Illness History of Present Illness: PGY4 Initial GI Consultation Laina 77F with history of HTN, DM, hyperlipidemia, atrial fibrillation on eliquis, diverticulosis, GERD, and Colon polyps who presented for abd pain. Pt states that the onset was a day after the colonoscopy. Her colonoscopy on revealed a 8mm polyp in the ascending and 3mm polyp in the cecum with diverticulosis throughout. Pain is mostly in the right upper quadrant and does not radiate. She states pain is associated with nausea and vomiting, emesis consist of bilious fluid, non bloody. She denies any fevers or chills, denies any change in her bowel movements. Ct scan revealed a stone at the gallbladder neck and dilatation of the GB. Her LFTs were initially normal, but today her ALT slightly increased. No evidence of CBD dilation on CT. We first established care as an outpt on 09/14/2017. She initially presented to the office with complaints of chronic diarrhea and left sided abdominal pain. Pt reports that she has had unintentional 10lb weight loss in one year, denies loss of appetite, nause or vomiting. Pt reports she has had diarrhea for many years assoicted with abdominal pain which is relieved after defecation. She also had a colonoscopy 3 years ago which showed "pre cancerous polyps" as per patient and was asked to repeat in 3 years. PMH: Anxiety, Arthritis, Atrial Fibrillation, Cardia Arrhythmia (AFIB), Diabetes , HTN, Hypercholesterolemia, Osteoporosis, Rheumatoid Arthritis, TIA PSH: hysterectomy Social: denies tobacco, alcohol, illicit Allergies: NKDA Past Patient History - Infectious Disease Hx of Infectious Diseases: None - Past Medical History & Family History Past Medical History?: Yes - Past Social History Smoking Status: Never Smoked - CARDIAC Hx Atrial Fibrillation: Yes Hx Cardia Arrhythmia: Yes (AFIB) Hx Hypercholesterolemia: Yes Hx Hypertension: Yes - PULMONARY Hx Respiratory Disorders: No - NEUROLOGICAL Hx Transient Ischemic Attacks (TIA): Yes - HEENT Hx HEENT Problems: No - RENAL Hx Chronic Kidney Disease: No - ENDOCRINE/METABOLIC Hx Endocrine Disorders: Yes Hx Diabetes Mellitus Type 2: Yes - HEMATOLOGICAL/ONCOLOGICAL Hx Blood Disorders: No - INTEGUMENTARY Hx Dermatological Problems: No - MUSCULOSKELETAL/RHEUMATOLOGICAL Hx Arthritis: Yes Hx Osteoporosis: Yes Hx Rheumatoid Arthritis: Yes - GASTROINTESTINAL Hx Gastrointestinal Disorders: Yes Hx Gastroesophageal Reflux: Yes - GENITOURINARY/GYNECOLOGICAL Hx Genitourinary Disorders: No - PSYCHIATRIC Hx Anxiety: Yes Hx Substance Use: No - SURGICAL HISTORY Hx Surgeries: Yes Hx Herniorrhaphy: Yes Hx Hysterectomy: Yes (20 years ago) Hx Tubal Ligation: Yes Other/Comment: COLONSCOPY - ANESTHESIA Hx Anesthesia: Yes Hx Anesthesia Reactions: Yes (VOMITING) Hx Malignant Hyperthermia: No Meds Allergies/Adverse Reactions: Allergies Allergy/AdvReac Type Severity Reaction Status Date / Time No Known Allergies Allergy Verified 12/24/17 00:54 - Medications Medications: Current Medications Hydromorphone HCl (Dilaudid) 1 mg IVP Q4H PRN PRN Reason: Pain, severe (8-10) Last Admin: 12/24/17 12:26 Dose: 1 mg Sodium Chloride (Sodium Chloride 0.9%) 1,000 mls @ 100 mls/hr IV .Q10H [facility] Last Admin: 12/24/17 07:50 Dose: 100 mls/hr Piperacillin Sod/Tazobactam Sod (Zosyn 3.375 Gm Iv Premix) 3.375 gm in 50 mls @ 100 mls/hr IVPB Q8H [facility] PRN Reason: Protocol Insulin Human Regular (Novolin R) 0 unit SC ACHS [facility] PRN Reason: Protocol Last Admin: 12/24/17 12:26 Dose: Not Given Ondansetron HCl (Zofran Inj) 4 mg IVP Q4 PRN PRN Reason: Nausea/Vomiting Last Admin: 12/24/17 07:50 Dose: 4 mg Pantoprazole Sodium (Protonix Inj) 40 mg IVP DAILY [facility] Last Admin: 12/24/17 09:23 Dose: 40 mg Physical Exam - Constitutional Appears: Non-toxic, No Acute Distress - Head Exam Head Exam: ATRAUMATIC, NORMOCEPHALIC - Eye Exam Eye Exam: Normal appearance - ENT Exam ENT Exam: Mucous Membranes Moist, Normal Exam - Neck Exam Neck exam: Positive for: Normal Inspection - Respiratory Exam Respiratory Exam: Clear to Auscultation Bilateral, NORMAL BREATHING PATTERN. absent: Rales, Rhonchi, Wheezes, Respiratory Distress - Cardiovascular Exam Cardiovascular Exam: REGULAR RHYTHM, +S1, +S2 - GI/Abdominal Exam GI & Abdominal Exam: Normal Bowel Sounds, Tenderness (epigastric). absent: Distended, Firm, Guarding, Hernia, Rebound, Rigid - Extremities Exam Extremities exam: Negative for: joint swelling, pedal edema - Neurological Exam Neurological exam: Alert, Oriented x3 - Psychiatric Exam Psychiatric exam: Normal Affect, Normal Mood - Skin Skin Exam: Dry, Intact, Normal Color, Warm Results - Vital Signs Recent Vital Signs: Last Vital Signs Temp 97.6 F 12/24/17 07:33 Pulse 68 12/24/17 09:15 Resp 20 12/24/17 09:15 BP 150/72 12/24/17 09:15 Pulse Ox 98 12/24/17 09:15 - Labs Result Diagrams: 12/24/17 01:33 12/24/17 09:11 Labs: Laboratory Results - last 24 hr 12/24/17 12/24/17 12/24/17 01:33 01:33 01:33 WBC 14.3 H RBC 4.16 Hgb 13.1 Hct 39.2 MCV 94.2 MCH 31.4 H MCHC 33.3 RDW 13.3 Plt Count 322 MPV 9.3 Neut % (Auto) 66.3 Lymph % (Auto) 25.8 [place] % (Auto) 5.3 Eos % (Auto) 2.1 Baso % (Auto) 0.5 Neut # (Auto) 9.5 H Lymph # (Auto) 3.7 [place] # (Auto) 0.8 Eos # (Auto) 0.3 Baso # (Auto) 0.1 PT 13.2 H INR 1.2 APTT 34 Sodium 139 Potassium 5.8 H Chloride 103 Carbon Dioxide 22 Anion Gap 21 H BUN 15 Creatinine 0.5 L Est GFR ( Amer) > 60 Est GFR (Non-Af Amer) > 60 POC Glucose (mg/dL) Random Glucose 182 H Calcium 9.1 Total Bilirubin 0.9 AST 39 H D ALT 20 Alkaline Phosphatase 68 Total Protein 7.8 Albumin 4.2 Globulin 3.6 Albumin/Globulin Ratio 1.2 Lipase 140 Urine Color Urine Clarity Urine pH Ur Specific [place] Urine Protein Urine Glucose (UA) Urine Ketones Urine Blood Urine Nitrate Urine Bilirubin Urine Urobilinogen Ur Leukocyte Esterase Urine WBC (Auto) Urine RBC (Auto) Ur Squamous Epith Cells Urine Bacteria Hyaline Casts Granular Casts (Auto) 12/24/17 12/24/17 12/24/17 05:07 09:11 11:30 WBC RBC Hgb Hct MCV MCH MCHC RDW Plt Count MPV Neut % (Auto) Lymph % (Auto) [place] % (Auto) Eos % (Auto) Baso % (Auto) Neut # (Auto) Lymph # (Auto) [place] # (Auto) Eos # (Auto) Baso # (Auto) PT INR APTT Sodium 138 Potassium 4.0 Chloride 105 Carbon Dioxide 25 Anion Gap 13 BUN 11 Creatinine 0.4 L Est GFR ( Amer) > 60 Est GFR (Non-Af Amer) > 60 POC Glucose (mg/dL) 107 Random Glucose 133 H Calcium 7.8 L Total Bilirubin AST ALT Alkaline Phosphatase Total Protein Albumin Globulin Albumin/Globulin Ratio Lipase Urine Color Yellow Urine Clarity Hazy Urine pH 5.0 Ur Specific [place] 1.033 H Urine Protein Negative Urine Glucose (UA) Normal Urine Ketones Trace Urine Blood Negative Urine Nitrate Negative Urine Bilirubin Negative Urine Urobilinogen Normal Ur Leukocyte Esterase 2+ H Urine WBC (Auto) 57 H Urine RBC (Auto) 1 Ur Squamous Epith Cells < 1 Urine Bacteria Rare Hyaline Casts 6-10 H Granular Casts (Auto) 1 Assessment & Plan - Assessment and Plan (Free Text) Assessment: Laina 77F with history of HTN, DM, hyperlipidemia, atrial fibrillation on eliquis, diverticulosis, GERD, and Colon polyps who presented for abd pain. On CT scan, she is found to have a dilated GB with a stone at the neck of the GB: U /S 12mm stone at GB neck and GB wall thickening; CBD: 6mm Acute Cholecystitis Abd pain like ly 2/2 to above. DDx: post-polypectomy syndrome Diverticulosis cholelithiasis Hx of polyps Plan: -no indication of CBD stone -management as per surgery -as per RN, possible lap alicia tomorrow -No acute Gi intervention indicated -f/u Dr. Friend as outpt -continue abx D/W Dr. Cantor <Nicolasa Cantor - Last Filed: 12/24/17 15:42> Meds - Medications Medications: Current Medications Hydromorphone HCl (Dilaudid) 1 mg IVP Q4H PRN PRN Reason: Pain, severe (8-10) Last Admin: 12/24/17 12:26 Dose: 1 mg Sodium Chloride (Sodium Chloride 0.9%) 1,000 mls @ 100 mls/hr IV .Q10H [facility] Last Admin: 12/24/17 07:50 Dose: 100 mls/hr Piperacillin Sod/Tazobactam Sod (Zosyn 3.375 Gm Iv Premix) 3.375 gm in 50 mls @ 100 mls/hr IVPB Q8H [facility] PRN Reason: Protocol Last Admin: 12/24/17 13:16 Dose: 100 mls/hr Insulin Human Regular (Novolin R) 0 unit SC ACHS [facility] PRN Reason: Protocol Last Admin: 12/24/17 12:26 Dose: Not Given Ondansetron HCl (Zofran Inj) 4 mg IVP Q4 PRN PRN Reason: Nausea/Vomiting Last Admin: 12/24/17 07:50 Dose: 4 mg Pantoprazole Sodium (Protonix Inj) 40 mg IVP DAILY [facility] Last Admin: 12/24/17 09:23 Dose: 40 mg Results - Vital Signs Recent Vital Signs: Last Vital Signs Temp 97.6 F 12/24/17 07:33 Pulse 68 12/24/17 09:15 Resp 20 12/24/17 09:15 BP 150/72 12/24/17 09:15 Pulse Ox 98 12/24/17 09:15 - Labs Result Diagrams: 12/24/17 01:33 12/24/17 09:11 Labs: Laboratory Results - last 24 hr 12/24/17 12/24/17 12/24/17 01:33 01:33 01:33 WBC 14.3 H RBC 4.16 Hgb 13.1 Hct 39.2 MCV 94.2 MCH 31.4 H MCHC 33.3 RDW 13.3 Plt Count 322 MPV 9.3 Neut % (Auto) 66.3 Lymph % (Auto) 25.8 [place] % (Auto) 5.3 Eos % (Auto) 2.1 Baso % (Auto) 0.5 Neut # (Auto) 9.5 H Lymph # (Auto) 3.7 [place] # (Auto) 0.8 Eos # (Auto) 0.3 Baso # (Auto) 0.1 PT 13.2 H INR 1.2 APTT 34 Sodium 139 Potassium 5.8 H Chloride 103 Carbon Dioxide 22 Anion Gap 21 H BUN 15 Creatinine 0.5 L Est GFR ( Amer) > 60 Est GFR (Non-Af Amer) > 60 POC Glucose (mg/dL) Random Glucose 182 H Calcium 9.1 Total Bilirubin 0.9 AST 39 H D ALT 20 Alkaline Phosphatase 68 Total Protein 7.8 Albumin 4.2 Globulin 3.6 Albumin/Globulin Ratio 1.2 Lipase 140 Urine Color Urine Clarity Urine pH Ur Specific [place] Urine Protein Urine Glucose (UA) Urine Ketones Urine Blood Urine Nitrate Urine Bilirubin Urine Urobilinogen Ur Leukocyte Esterase Urine WBC (Auto) Urine RBC (Auto) Ur Squamous Epith Cells Urine Bacteria Hyaline Casts Granular Casts (Auto) 12/24/17 12/24/17 12/24/17 05:07 09:11 11:30 WBC RBC Hgb Hct MCV MCH MCHC RDW Plt Count MPV Neut % (Auto) Lymph % (Auto) [place] % (Auto) Eos % (Auto) Baso % (Auto) Neut # (Auto) Lymph # (Auto) [place] # (Auto) Eos # (Auto) Baso # (Auto) PT INR APTT Sodium 138 Potassium 4.0 Chloride 105 Carbon Dioxide 25 Anion Gap 13 BUN 11 Creatinine 0.4 L Est GFR ( Amer) > 60 Est GFR (Non-Af Amer) > 60 POC Glucose (mg/dL) 107 Random Glucose 133 H Calcium 7.8 L Total Bilirubin AST ALT Alkaline Phosphatase Total Protein Albumin Globulin Albumin/Globulin Ratio Lipase Urine Color Yellow Urine Clarity Hazy Urine pH 5.0 Ur Specific [place] 1.033 H Urine Protein Negative Urine Glucose (UA) Normal Urine Ketones Trace Urine Blood Negative Urine Nitrate Negative Urine Bilirubin Negative Urine Urobilinogen Normal Ur Leukocyte Esterase 2+ H Urine WBC (Auto) 57 H Urine RBC (Auto) 1 Ur Squamous Epith Cells < 1 Urine Bacteria Rare Hyaline Casts 6-10 H Granular Casts (Auto) 1 Attending/Attestation - Attestation I have personally seen and examined this patient.: Yes I have fully participated in the care of the patient.: Yes I have reviewed all pertinent clinical information: Yes Notes (Text): 12/24/17 15:40 Patient seen at bedside. This is a 77 yr old F with history of HTN, DM, hyperlipidemia, atrial fibrillation on eliquis, diverticulosis, GERD, and Colon polyps s/p colonoscopy who presented for abdominal pain. On CT scan, she is found to have a dilated GB with a stone at the neck of the GB: U/S 12mm stone at GB neck and GB wall thickening; CBD: 6mm. Concern for acute cholecystitis. No choledocholithiasis. No Gi intervention. Rest of plan as per surgical service. Thank you for letting us participate in the care of your patient
[2017-12-24] MEDS: Piperacill/Tazo 3.375gm in Dex 3.375 GM/50 ML BAG IVPB SCH ×2 (13:16→22:34)
[2017-12-24] MEDS: HYDROmorphone 1 mg/ml ISec IVP PRN (22:36)
--- NOTE | 2017-12-24 23:01 | CP.PCM.CON ---
History of Present Illness - History of Present Illness History of Present Illness: CC: Pre Op Cardiac rsik assessment 77 F known to me with hx of A Fib, HTN Recent cath 11/2017: Normal coronaries and normal EF Assessed as low to moderate cardiac risk for Cholecystectomy under general anaesthesia Cardiac point of cleared for this surgery tomorrow Resume anticoagulation as soon as possible Laina 77F with history of HTN, DM, hyperlipidemia, atrial fibrillation on eliquis, diverticulosis, GERD, and Colon polyps who presented for abd pain. Pt states that the onset was a day after the colonoscopy. Her colonoscopy on revealed a 8mm polyp in the ascending and 3mm polyp in the cecum with diverticulosis throughout. Pain is mostly in the right upper quadrant and does not radiate. She states pain is associated with nausea and vomiting, emesis consist of bilious fluid, non bloody. She denies any fevers or chills, denies any change in her bowel movements. Ct scan revealed a stone at the gallbladder neck and dilatation of the GB. Her LFTs were initially normal, but today her ALT slightly increased. No evidence of CBD dilation on CT. We first established care as an outpt on 09/14/2017. She initially presented to the office with complaints of chronic diarrhea and left sided abdominal pain. Pt reports that she has had unintentional 10lb weight loss in one year, denies loss of appetite, nause or vomiting. Pt reports she has had diarrhea for many years assoicted with abdominal pain which is relieved after defecation. She also had a colonoscopy 3 years ago which showed "pre cancerous polyps" as per patient and was asked to repeat in 3 years. PMH: Anxiety, Arthritis, Atrial Fibrillation, Cardia Arrhythmia (AFIB), Diabetes , HTN, Hypercholesterolemia, Osteoporosis, Rheumatoid Arthritis, TIA PSH: hysterectomy Social: denies tobacco, alcohol, illicit Allergies: NKDA Physical Exam - Constitutional Appears: Non-toxic, No Acute Distress - Head Exam Head Exam: ATRAUMATIC, NORMOCEPHALIC - Eye Exam Eye Exam: Normal appearance - ENT Exam ENT Exam: Mucous Membranes Moist, Normal Exam - Neck Exam Neck exam: Positive for: Normal Inspection - Respiratory Exam Respiratory Exam: Clear to Auscultation Bilateral, NORMAL BREATHING PATTERN. absent: Rales, Rhonchi, Wheezes, Respiratory Distress - Cardiovascular Exam Cardiovascular Exam: REGULAR RHYTHM, +S1, +S2 - GI/Abdominal Exam GI & Abdominal Exam: Normal Bowel Sounds, Tenderness (epigastric). absent: Distended, Firm, Guarding, Hernia, Rebound, Rigid - Extremities Exam Extremities exam: Negative for: joint swelling, pedal edema - Neurological Exam Neurological exam: Alert, Oriented x3 - Psychiatric Exam Psychiatric exam: Normal Affect, Normal Mood - Skin Skin Exam: Dry, Intact, Normal Color, Warm Past Patient History - Infectious Disease Hx of Infectious Diseases: None - Past Medical History & Family History Past Medical History?: Yes - Past Social History Smoking Status: Never Smoked - CARDIAC Hx Atrial Fibrillation: Yes Hx Cardia Arrhythmia: Yes (AFIB) Hx Hypercholesterolemia: Yes Hx Hypertension: Yes - PULMONARY Hx Respiratory Disorders: No - NEUROLOGICAL Hx Transient Ischemic Attacks (TIA): Yes - HEENT Hx HEENT Problems: No - RENAL Hx Chronic Kidney Disease: No - ENDOCRINE/METABOLIC Hx Endocrine Disorders: Yes Hx Diabetes Mellitus Type 2: Yes - HEMATOLOGICAL/ONCOLOGICAL Hx Blood Disorders: No - INTEGUMENTARY Hx Dermatological Problems: No - MUSCULOSKELETAL/RHEUMATOLOGICAL Hx Arthritis: Yes Hx Osteoporosis: Yes Hx Rheumatoid Arthritis: Yes - GASTROINTESTINAL Hx Gastrointestinal Disorders: Yes Hx Gastroesophageal Reflux: Yes - GENITOURINARY/GYNECOLOGICAL Hx Genitourinary Disorders: No - PSYCHIATRIC Hx Anxiety: Yes Hx Substance Use: No - SURGICAL HISTORY Hx Surgeries: Yes Hx Herniorrhaphy: Yes Hx Hysterectomy: Yes (20 years ago) Hx Tubal Ligation: Yes Other/Comment: COLONSCOPY - ANESTHESIA Hx Anesthesia: Yes Hx Anesthesia Reactions: Yes (VOMITING) Hx Malignant Hyperthermia: No Meds Allergies/Adverse Reactions: Allergies Allergy/AdvReac Type Severity Reaction Status Date / Time No Known Allergies Allergy Verified 12/24/17 00:54 - Medications Medications: Current Medications Hydromorphone HCl (Dilaudid) 1 mg IVP Q4H PRN PRN Reason: Pain, severe (8-10) Last Admin: 12/24/17 22:36 Dose: 1 mg Sodium Chloride (Sodium Chloride 0.9%) 1,000 mls @ 100 mls/hr IV .Q10H [facility] Last Admin: 12/24/17 17:04 Dose: 100 mls/hr Piperacillin Sod/Tazobactam Sod (Zosyn 3.375 Gm Iv Premix) 3.375 gm in 50 mls @ 100 mls/hr IVPB Q8H [facility] PRN Reason: Protocol Last Admin: 12/24/17 22:34 Dose: 100 mls/hr Insulin Human Regular (Novolin R) 0 unit SC ACHS [facility] PRN Reason: Protocol Last Admin: 12/24/17 22:07 Dose: Not Given Ondansetron HCl (Zofran Inj) 4 mg IVP Q4 PRN PRN Reason: Nausea/Vomiting Last Admin: 12/24/17 22:36 Dose: 4 mg Pantoprazole Sodium (Protonix Inj) 40 mg IVP DAILY [facility] Last Admin: 12/24/17 09:23 Dose: 40 mg Pneumococcal Polyvalent Vaccine (Pneumovax 23 Vaccine) 0.5 ml IM .ONCE ONE Stop: 12/26/17 10:01 Results - Vital Signs Recent Vital Signs: Last Vital Signs Temp 97.7 F 12/24/17 15:00 Pulse 61 12/24/17 15:00 Resp 20 12/24/17 15:00 BP 129/61 12/24/17 15:00 Pulse Ox 96 12/24/17 15:00 - Labs Result Diagrams: 12/27/17 07:18 12/27/17 07:18 Labs: Laboratory Results - last 24 hr 12/24/17 12/24/17 12/24/17 01:33 01:33 01:33 WBC 14.3 H RBC 4.16 Hgb 13.1 Hct 39.2 MCV 94.2 MCH 31.4 H MCHC 33.3 RDW 13.3 Plt Count 322 MPV 9.3 Neut % (Auto) 66.3 Lymph % (Auto) 25.8 [place] % (Auto) 5.3 Eos % (Auto) 2.1 Baso % (Auto) 0.5 Neut # (Auto) 9.5 H Lymph # (Auto) 3.7 [place] # (Auto) 0.8 Eos # (Auto) 0.3 Baso # (Auto) 0.1 PT 13.2 H INR 1.2 APTT 34 Sodium 139 Potassium 5.8 H Chloride 103 Carbon Dioxide 22 Anion Gap 21 H BUN 15 Creatinine 0.5 L Est GFR ( Amer) > 60 Est GFR (Non-Af Amer) > 60 POC Glucose (mg/dL) Random Glucose 182 H Calcium 9.1 Total Bilirubin 0.9 AST 39 H D ALT 20 Alkaline Phosphatase 68 Total Protein 7.8 Albumin 4.2 Globulin 3.6 Albumin/Globulin Ratio 1.2 Lipase 140 Urine Color Urine Clarity Urine pH Ur Specific [place] Urine Protein Urine Glucose (UA) Urine Ketones Urine Blood Urine Nitrate Urine Bilirubin Urine Urobilinogen Ur Leukocyte Esterase Urine WBC (Auto) Urine RBC (Auto) Ur Squamous Epith Cells Urine Bacteria Hyaline Casts Granular Casts (Auto) 12/24/17 12/24/17 12/24/17 05:07 09:11 11:30 WBC RBC Hgb Hct MCV MCH MCHC RDW Plt Count MPV Neut % (Auto) Lymph % (Auto) [place] % (Auto) Eos % (Auto) Baso % (Auto) Neut # (Auto) Lymph # (Auto) [place] # (Auto) Eos # (Auto) Baso # (Auto) PT INR APTT Sodium 138 Potassium 4.0 Chloride 105 Carbon Dioxide 25 Anion Gap 13 BUN 11 Creatinine 0.4 L Est GFR ( Amer) > 60 Est GFR (Non-Af Amer) > 60 POC Glucose (mg/dL) 107 Random Glucose 133 H Calcium 7.8 L Total Bilirubin AST ALT Alkaline Phosphatase Total Protein Albumin Globulin Albumin/Globulin Ratio Lipase Urine Color Yellow Urine Clarity Hazy Urine pH 5.0 Ur Specific [place] 1.033 H Urine Protein Negative Urine Glucose (UA) Normal Urine Ketones Trace Urine Blood Negative Urine Nitrate Negative Urine Bilirubin Negative Urine Urobilinogen Normal Ur Leukocyte Esterase 2+ H Urine WBC (Auto) 57 H Urine RBC (Auto) 1 Ur Squamous Epith Cells < 1 Urine Bacteria Rare Hyaline Casts 6-10 H Granular Casts (Auto) 1 12/24/17 12/24/17 16:21 21:38 WBC RBC Hgb Hct MCV MCH MCHC RDW Plt Count MPV Neut % (Auto) Lymph % (Auto) [place] % (Auto) Eos % (Auto) Baso % (Auto) Neut # (Auto) Lymph # (Auto) [place] # (Auto) Eos # (Auto) Baso # (Auto) PT INR APTT Sodium Potassium Chloride Carbon Dioxide Anion Gap BUN Creatinine Est GFR ( Amer) Est GFR (Non-Af Amer) POC Glucose (mg/dL) 90 103 Random Glucose Calcium Total Bilirubin AST ALT Alkaline Phosphatase Total Protein Albumin Globulin Albumin/Globulin Ratio Lipase Urine Color Urine Clarity Urine pH Ur Specific [place] Urine Protein Urine Glucose (UA) Urine Ketones Urine Blood Urine Nitrate Urine Bilirubin Urine Urobilinogen Ur Leukocyte Esterase Urine WBC (Auto) Urine RBC (Auto) Ur Squamous Epith Cells Urine Bacteria Hyaline Casts Granular Casts (Auto) Assessment & Plan - Assessment and Plan (Free Text) Assessment: Pre Op Cardiac rsik assessment 77 F known to me with hx of A Fib, HTN Recent cath 11/2017: Normal coronaries and normal EF Assessed as low to moderate cardiac risk for Cholecystectomy under general anaesthesia Cardiac point of cleared for this surgery tomorrow Resume anticoagulation as soon as possible
[2017-12-25] MEDS: Sodium Chloride 0.9% 1,000 ML IV SCH ×2 (04:00→14:45)
[2017-12-25] MEDS: Piperacill/Tazo 3.375gm in Dex 3.375 GM/50 ML BAG IVPB SCH ×3 (04:00→21:15)
[2017-12-25 06:49] LABS: BASO # 0.1 K/uL (0.0-0.2); BASO % 0.5 % (0.0-2.0); EOS % 0.2 % (0.0-4.0); HEMOGLOBIN 12.1 g/dL (11.0-16.0); LYMPH # 1.3 K/uL (1.0-4.3); LYMPH % 6.1 % (20.0-40.0); MEAN CELL VOLUME 93.9 fL (81.0-99.0); MEAN CORPUSCULAR HEMOGLOBIN 31.7 pg (27.0-31.0); MEAN CORPUSCULAR HGB CONC 33.8 g/dL (33.0-37.0); MEAN PLATELET VOLUME 9.3 fL (7.2-11.7); MONO # 1.6 K/uL (0.0-0.8); MONO % 7.9 % (0.0-10.0); NEUT # 17.6 K/uL (1.8-7.0); NEUT % 85.3 % (50.0-75.0); PLATELET COUNT 244 K/uL (130-400); RED CELL DISTRIBUTION WIDTH 13.3 % (11.5-14.5); WHITE BLOOD COUNT 20.7 K/uL (4.8-10.8)
[2017-12-25 06:56] LABS: INR 1.4; PROTHROMBIN TIME 16.4 SECONDS (9.7-12.2)
[2017-12-25 07:48] LABS: ALT/SGPT 32 U/L (9-52); AST/SGOT 21 U/L (14-36); BLOOD UREA NITROGEN 8 mg/dL (7-17); CALCIUM 7.5 mg/dl (8.6-10.4); GFR AFRICAN-AMERICAN > 60; GFR NON-AFRICAN AMERICAN > 60
[2017-12-25] MEDS: (Novolin R) Insulin Human Regular 100 units/ml vial SC SCH ×4 (08:30→21:37)
[2017-12-25 08:51] LABS: BANDS 2 % (0-2); LYMPHOCYTE 6 % (20-40); MONOCYTE 5 % (0-10); NEUTROPHIL 87 % (50-75); PLATELET ESTIMATE NORMAL (NORMAL); TOTAL CELLS COUNTED 100
[2017-12-25 08:52] LABS: ANISOCYTOSIS SLIGHT; POIKILOCYTOSIS SLIGHT; TEARDROP CELLS SLIGHT
[2017-12-25] MEDS: metroNIDAZOLE IV 500 mg/100 ml 250 MG in Premixed IV 1 EA IVPB SCH ×2 (13:00→22:38)
--- NOTE | 2017-12-25 14:23 | CP.PCM.PN ---
<Keily Dickens DO - Last Filed: 12/25/17 14:19> Subjective - Date & Time of Evaluation Date of Evaluation: 12/25/17 Time of Evaluation: 09:20 - Subjective Subjective: Medicine progress note for Dr. Ramirez's service Patient seen and examined. Patient NPO for cholecystectomy later this afternoon. Patient reports that pain is well-controlled but admits to tenderness on palpation. Patient reports chills and headache earlier this morning. Patient reports feeling better than at time of admission. Objective - Vital Signs/Intake and Output Vital Signs (last 24 hours): Temp Pulse Resp BP Pulse Ox 100.9 F H 80 20 124/76 96 12/25/17 09:03 12/25/17 08:16 12/25/17 08:16 12/25/17 08:16 12/25/17 08:16 Intake and Output: 12/25/17 12/25/17 06:59 18:59 Intake Total 850 Balance 850 - Medications Medications: Current Medications Acetaminophen (Tylenol 325mg Tab) 650 mg PO Q6 PRN PRN Reason: Fever >100.4 F Last Admin: 12/25/17 09:03 Dose: 650 mg Hydromorphone HCl (Dilaudid) 1 mg IVP Q4H PRN PRN Reason: Pain, severe (8-10) Last Admin: 12/24/17 22:36 Dose: 1 mg Sodium Chloride (Sodium Chloride 0.9%) 1,000 mls @ 100 mls/hr IV .Q10H [facility] Last Admin: 12/25/17 04:00 Dose: 100 mls/hr Piperacillin Sod/Tazobactam Sod (Zosyn 3.375 Gm Iv Premix) 3.375 gm in 50 mls @ 100 mls/hr IVPB Q8H [facility] PRN Reason: Protocol Last Admin: 12/25/17 12:19 Dose: 100 mls/hr Metronidazole 250 mg/ (Miscellaneous) 50 mls @ 100 mls/hr IVPB Q8 [facility] PRN Reason: Protocol Potassium Chloride (Potassium Chloride 10 Meq/100 Ml) 10 meq in 100 mls @ 100 mls/hr IVPB Q1H [facility] Stop: 12/25/17 15:29 Insulin Human Regular (Novolin R) 0 unit SC ACHS [facility] PRN Reason: Protocol Last Admin: 12/25/17 12:13 Dose: Not Given Ondansetron HCl (Zofran Inj) 4 mg IVP Q4 PRN PRN Reason: Nausea/Vomiting Last Admin: 12/24/17 22:36 Dose: 4 mg Pantoprazole Sodium (Protonix Inj) 40 mg IVP DAILY [facility] Last Admin: 12/25/17 09:04 Dose: 40 mg Pneumococcal Polyvalent Vaccine (Pneumovax 23 Vaccine) 0.5 ml IM .ONCE ONE Stop: 12/26/17 10:01 - Labs Labs: 12/25/17 06:39 12/25/17 06:39 PT 16.4 SECONDS (9.7-12.2) H 12/25/17 06:39 INR 1.4 12/25/17 06:39 APTT 34 SECONDS (21-34) 12/25/17 06:39 - Constitutional Appears: No Acute Distress - Head Exam Head Exam: ATRAUMATIC, NORMOCEPHALIC - Eye Exam Eye Exam: EOMI - ENT Exam ENT Exam: Mucous Membranes Moist - Respiratory Exam Respiratory Exam: Clear to Ausculation Bilateral - Cardiovascular Exam Cardiovascular Exam: +S1, +S2 - GI/Abdominal Exam GI & Abdominal Exam: Soft, Tenderness (RUQ), Normal Bowel Sounds - Extremities Exam Extremities Exam: Normal Inspection - Neurological Exam Neurological Exam: Alert, Awake - Psychiatric Exam Psychiatric exam: Normal Affect - Skin Skin Exam: Warm Assessment and Plan - Assessment and Plan (Free Text) Assessment: 77 year old female with history of atrial fibrillation, HTN, diabetes who presents with acute cholecystitis Acute cholecystitis -Abd U/S showed findings suggesting acute cholecystitis. Mild common bile duct dilation without definite stone -Abd CT showed distended gallbladder and gallbladder neck stone (see report) -Dilaudid 1mg IV Q4 prn -NS @100ml/hr -Zofran 4mg IV Q4 prn -Zosyn 3.375gm IV Q8 -Surgery consult, Dr. Hendricks help appreciated -NPO, planning for OR this afternoon -Cardiac risk stratification by Dr. Issa: low to moderate cardiac risk Leukocytosis -12/25/17: WBC increased from 14.3 to 20.7 -blood culture no growth 24 hours and urine culture culture contaminated -Zosyn 3.375gm IV Q8 (started 12/24) -flagyl 250mg IV q8 (started 12/25) Atrial Fibrillation patient takes Eliquis 2.5mg PO BID at home held for outpatient colonoscopy on 12/21, patient took one dose on evening of recent cardiac catheterization in 11/2017 with normal coronaries and EF per Dr. Issa resume Eliquis as soon as possible after surgery per Dr. Issa currently rate controlled, consider restarting coreg 12.5mg PO BID after surgery DM Hgb A1c 6.3 Patient's home med amaryl held currently continue insulin sliding scale hypoglycemia protocol HLD home medication pravastatin 40mg currently held for surgery HTN currently normotensive, continue to monitor if blood pressure elevates will consider restarting home medication: diovan 80mg PO daily Prophylactic measures -Protonix 40mg IV daily -SCDs <Jeanmarie Ramirez H - Last Filed: 12/25/17 17:15> Objective - Vital Signs/Intake and Output Vital Signs (last 24 hours): Temp Pulse Resp BP Pulse Ox 98.4 F 85 20 110/62 97 12/25/17 15:15 12/25/17 15:15 12/25/17 15:15 12/25/17 15:15 12/25/17 15:15 Intake and Output: 12/25/17 12/25/17 06:59 18:59 Intake Total 1650 Balance 1650 - Medications Medications: Current Medications Acetaminophen (Tylenol 325mg Tab) 650 mg PO Q6 PRN PRN Reason: Fever >100.4 F Last Admin: 12/25/17 09:03 Dose: 650 mg Dextrose (Dextrose 50% Inj) 0 ml IVP .STAT PRN; Protocol PRN Reason: Hypoglycemia Protocol Dextrose (Glutose 15) 15 gm PO .ONCE PRN; Protocol PRN Reason: Hypoglycemia Protocol Glucagon (Glucagen Diagnostic Kit) 1 mg IM .STAT PRN; Protocol PRN Reason: Hypoglycemia Protocol Hydromorphone HCl (Dilaudid) 1 mg IVP Q4H PRN PRN Reason: Pain, severe (8-10) Last Admin: 12/24/17 22:36 Dose: 1 mg Sodium Chloride (Sodium Chloride 0.9%) 1,000 mls @ 100 mls/hr IV .Q10H [facility] Last Admin: 12/25/17 14:45 Dose: 100 mls/hr Piperacillin Sod/Tazobactam Sod (Zosyn 3.375 Gm Iv Premix) 3.375 gm in 50 mls @ 100 mls/hr IVPB Q8H [facility] PRN Reason: Protocol Last Admin: 12/25/17 12:19 Dose: 100 mls/hr Metronidazole 250 mg/ (Miscellaneous) 50 mls @ 100 mls/hr IVPB Q8 [facility] PRN Reason: Protocol Last Admin: 12/25/17 13:00 Dose: 100 mls/hr Dextrose (Dextrose 5% In Water 1000 Ml) 1,000 mls @ 0 mls/hr IV .Q0M PRN; Protocol; Per Protocol PRN Reason: Hypoglycemia Protocol Insulin Human Regular (Novolin R) 0 unit SC ACHS [facility] PRN Reason: Protocol Last Admin: 12/25/17 12:13 Dose: Not Given Ondansetron HCl (Zofran Inj) 4 mg IVP Q4 PRN PRN Reason: Nausea/Vomiting Last Admin: 12/24/17 22:36 Dose: 4 mg Pantoprazole Sodium (Protonix Inj) 40 mg IVP DAILY [facility] Last Admin: 12/25/17 09:04 Dose: 40 mg Pneumococcal Polyvalent Vaccine (Pneumovax 23 Vaccine) 0.5 ml IM .ONCE ONE Stop: 12/26/17 10:01 - Labs Labs: 12/25/17 06:39 12/25/17 06:39 PT 16.4 SECONDS (9.7-12.2) H 12/25/17 06:39 INR 1.4 12/25/17 06:39 APTT 34 SECONDS (21-34) 12/25/17 06:39 Attending/Attestation - Attestation I have personally seen and examined this patient.: Yes I have fully participated in the care of the patient.: Yes I have reviewed all pertinent clinical information, including history, physical exam and plan: Yes Notes (Text): 12/25/17 17:13 Medical attending: Patient was seen and examined by me, agree with the above note by the resident The patient was with family members at bedside when we saw her She was not in any acute distress As mentioned above in the resident note, the patient had imaging done showing cholecystitis as well as gall stones. The CBD was ok. She was already NPO and when we saw her in the morning had not yet gone to the ER She has a history of atrial fibrillation and her tree climber has evaulated her while she is here and ok for surgery For now she remains on IV abx. On exam she still had RUQ tenderness with palpation. thank you Jeanmarie Ramirez
[2017-12-25] MEDS ORDERED: Dextrose 50% SYRINGE Inj (50 ml) IVP PRN (14:28)
[2017-12-25] MEDS ORDERED: Glucagon Recombinant 1 mg Inj IM PRN (14:28)
[2017-12-25] MEDS: Dextrose 5%/0.45% NS 1,000 ML IV SCH (17:50)
[2017-12-25] MEDS: HYDROmorphone 1 mg/ml ISec IVP PRN (18:22)
[2017-12-26] MEDS: Dextrose 5%/0.45% NS 1,000 ML IV SCH ×2 (04:15→15:00)
[2017-12-26] MEDS: Piperacill/Tazo 3.375gm in Dex 3.375 GM/50 ML BAG IVPB SCH ×3 (04:16→21:37)
[2017-12-26] MEDS: metroNIDAZOLE IV 500 mg/100 ml 250 MG in Premixed IV 1 EA IVPB SCH ×3 (05:21→21:53)
[2017-12-26 06:05] LABS: BASO # 0.1 K/uL (0.0-0.2); BASO % 0.4 % (0.0-2.0); EOS # 0.2 K/uL (0.0-0.7); EOS % 0.8 % (0.0-4.0); HEMOGLOBIN 11.3 g/dL (11.0-16.0); LYMPH # 1.3 K/uL (1.0-4.3); LYMPH % 6.6 % (20.0-40.0); MEAN CELL VOLUME 94.7 fL (81.0-99.0); MEAN CORPUSCULAR HEMOGLOBIN 31.5 pg (27.0-31.0); MEAN CORPUSCULAR HGB CONC 33.3 g/dL (33.0-37.0); MEAN PLATELET VOLUME 9.4 fL (7.2-11.7); MONO # 1.6 K/uL (0.0-0.8); MONO % 8.2 % (0.0-10.0); NEUT # 16.1 K/uL (1.8-7.0); PLATELET COUNT 205 K/uL (130-400); RBC 3.59 Mil/uL (3.80-5.20); RED CELL DISTRIBUTION WIDTH 13.4 % (11.5-14.5); WHITE BLOOD COUNT 19.2 K/uL (4.8-10.8)
[2017-12-26 06:57] LABS: ALBUMIN 2.7 g/dL (3.5-5.0); ALT/SGPT 25 U/L (9-52); AST/SGOT 24 U/L (14-36); BLOOD UREA NITROGEN 8 mg/dL (7-17); CALCIUM 7.4 mg/dl (8.6-10.4); GFR AFRICAN-AMERICAN > 60; GFR NON-AFRICAN AMERICAN > 60
[2017-12-26] MEDS ORDERED: Bupivacaine HCl 0.5% PF (10 ml) Inj ONE (07:33)
[2017-12-26] MEDS ORDERED: Lidocaine/Epinephrine 1% 1:100000 10 ML IJ ONE (07:34)
[2017-12-26] MEDS ORDERED: Midazolam 2 MG/2 ML VIAL ONE (07:48)
[2017-12-26] MEDS ORDERED: Propofol 10 mg/ml Inj (20 ML) ONE (07:48)
[2017-12-26] MEDS: (Novolin R) Insulin Human Regular 100 units/ml vial SC SCH ×4 (07:50→21:35)
[2017-12-26 08:33] LABS: BANDS 2 % (0-2); LYMPHOCYTE 9 % (20-40); MONOCYTE 9 % (0-10); NEUTROPHIL 80 % (50-75); PLATELET ESTIMATE NORMAL (NORMAL); TOTAL CELLS COUNTED 100
--- NOTE | 2017-12-26 08:48 | CP.PCM.PN ---
Subjective - Date & Time of Evaluation Date of Evaluation: 12/26/17 Time of Evaluation: 08:47 - Subjective Subjective: Progress Note for Dr. Ramirez Patient seen and examined at bedside s/p gallbladder removal today. Patient tolerating pain well. Patient denies fever, chills, nausea, vomiting, diarrhea. dressings intact at bedside. Objective - Vital Signs/Intake and Output Vital Signs (last 24 hours): Temp Pulse Resp BP Pulse Ox 98.4 F 81 20 146/71 96 12/26/17 07:06 12/26/17 07:06 12/26/17 07:06 12/26/17 07:06 12/26/17 07:06 Intake and Output: 12/26/17 12/26/17 06:59 18:59 Intake Total 900 800 Balance 900 800 - Medications Medications: Current Medications Acetaminophen (Tylenol 325mg Tab) 650 mg PO Q6 PRN PRN Reason: Fever >100.4 F Last Admin: 12/25/17 22:44 Dose: 650 mg Dextrose (Dextrose 50% Inj) 0 ml IVP .STAT PRN; Protocol PRN Reason: Hypoglycemia Protocol Dextrose (Glutose 15) 15 gm PO .ONCE PRN; Protocol PRN Reason: Hypoglycemia Protocol Glucagon (Glucagen Diagnostic Kit) 1 mg IM .STAT PRN; Protocol PRN Reason: Hypoglycemia Protocol Hydromorphone HCl (Dilaudid) 0.5 mg IVP Q6H PRN PRN Reason: Pain, severe (8-10) Sodium Chloride (Sodium Chloride 0.9%) 1,000 mls @ 100 mls/hr IV .Q10H [facility] Last Admin: 12/26/17 00:00 Dose: Not Given Piperacillin Sod/Tazobactam Sod (Zosyn 3.375 Gm Iv Premix) 3.375 gm in 50 mls @ 100 mls/hr IVPB Q8H [facility] PRN Reason: Protocol Last Admin: 12/26/17 04:16 Dose: 100 mls/hr Metronidazole 250 mg/ (Miscellaneous) 50 mls @ 100 mls/hr IVPB Q8 [facility] PRN Reason: Protocol Last Admin: 12/26/17 05:21 Dose: 100 mls/hr Dextrose (Dextrose 5% In Water 1000 Ml) 1,000 mls @ 0 mls/hr IV .Q0M PRN; Protocol; Per Protocol PRN Reason: Hypoglycemia Protocol Dextrose/Sodium Chloride (Dextrose 5%/0.45% Ns 1000 Ml) 1,000 mls @ 100 mls/hr IV .Q10H [facility] Last Admin: 12/26/17 04:15 Dose: Not Given Potassium Chloride (Potassium Chloride 20 Meq/100 Ml) 20 meq in 100 mls @ 50 mls/hr IVPB Q1H [facility] Stop: 12/26/17 10:14 Potassium Phosphate 15 mmole/ (Sodium Chloride) 255 mls @ 42.5 mls/hr IVPB ONCE ONE Stop: 12/26/17 16:59 Insulin Human Regular (Novolin R) 0 unit SC ACHS [facility] PRN Reason: Protocol Last Admin: 12/26/17 07:50 Dose: Not Given Ondansetron HCl (Zofran Inj) 4 mg IVP Q4 PRN PRN Reason: Nausea/Vomiting Last Admin: 12/24/17 22:36 Dose: 4 mg Pantoprazole Sodium (Protonix Inj) 40 mg IVP DAILY [facility] Last Admin: 12/25/17 09:04 Dose: 40 mg Pneumococcal Polyvalent Vaccine (Pneumovax 23 Vaccine) 0.5 ml IM .ONCE ONE Stop: 12/26/17 10:01 - Labs Labs: 12/26/17 06:02 12/26/17 06:02 PT 16.4 SECONDS (9.7-12.2) H 12/25/17 06:39 INR 1.4 12/25/17 06:39 APTT 34 SECONDS (21-34) 12/25/17 06:39 - Constitutional Appears: Non-toxic, No Acute Distress - Head Exam Head Exam: ATRAUMATIC, NORMAL INSPECTION, NORMOCEPHALIC - Eye Exam Eye Exam: EOMI, Normal appearance Pupil Exam: NORMAL ACCOMODATION, PERRL - ENT Exam ENT Exam: Mucous Membranes Moist, Normal Exam - Neck Exam Neck Exam: Full ROM - Respiratory Exam Respiratory Exam: Clear to Ausculation Bilateral, NORMAL BREATHING PATTERN. absent: Accessory Muscle Use - Cardiovascular Exam Cardiovascular Exam: REGULAR RHYTHM, +S1, +S2 - GI/Abdominal Exam GI & Abdominal Exam: Soft, Tenderness (pain right upper quadrant, and sites of incision). absent: Guarding, Rigid, Pulsatile Mass, Rebound - Extremities Exam Extremities Exam: Full ROM. absent: Pedal Edema - Back Exam Back Exam: Full ROM, NORMAL INSPECTION - Neurological Exam Neurological Exam: Alert, Awake, CN II-XII Intact, Oriented x3 - Psychiatric Exam Psychiatric exam: Normal Affect, Normal Mood - Skin Skin Exam: Dry, Intact, Normal Color, Warm Assessment and Plan - Assessment and Plan (Free Text) Assessment: 77 year old female with history of atrial fibrillation, HTN, diabetes who presents with acute cholecystitis Dilaudid 1mg IVP Q4H changed to Dilaudid 0.5mg IVP Q6H PRN for severe pain. will downgrade as necessary Potassium and Phosphorous repleted acute cholecystitis, no choledocholithiasis CT abdomen/pelvis: no ductal dilatation, gallbladder slightly distended 11mm stone at gallbladder neck US abdomen: 12mm stone at gallbladder neck. pericholecystic fluid and gallbladder wall thickening for surgery today 12/26, tolerated procedure well, purulent gallbladder was removed. Zosyn, Flagyl Per Surgery, hold anticoagulation until AM CBC DM Novolin R SC ACHS Hypoglycemia protocol in place Prophylaxis Zofran 4mg IVP Q4H PRN Protonix 40mg IVP QD Fever: Tylenol 650 mg PO Q6H NS @ 100cc/hr Jenni Walters discussed with attending
[2017-12-26] MEDS ORDERED: Neostigmine Methylsulfate 3mg/3ml Syringe IV ONE (09:09)
[2017-12-26] MEDS ORDERED: HYDROmorphone 0.5 mg/0.5 ml ISec IVP PRN (09:34)
--- NOTE | 2017-12-26 09:51 | PCM.SURG1 ---
Surgeon's Initial Post Op Note - Surgeon's Notes Surgeon: Dr Hendricks Patrol Conductor: Dr Orellana PGY3, Dr Barker PGY1 Type of Anesthesia: General Endo Pre-Operative Diagnosis: acute cholecystitis Operative Findings: see report Post-Operative Diagnosis: purulent acute cholecystitis Operation Performed: laparoscopic cholecystectomy Specimen/Specimens Removed: gallbladder Estimated Blood Loss: EBL {In ML}: 50 Blood Products Given: N/A Drains Used: No Drains Post-Op Condition: Good Date of Surgery/Procedure: 12/26/17 Time of Surgery/Procedure: 09:51
[2017-12-26] MEDS ORDERED: Vasopressin 20 Units/ml Inj ONE (09:58)
[2017-12-26] MEDS ORDERED: Pneumococcal 23-Valent Vaccine IM ONE (10:00)
[2017-12-26] MEDS ORDERED: Influenza Vaccine 60 mcg/0.5 mL SYR (4YR UP) IM ONE (10:00)
[2017-12-26] MEDS ORDERED: HYDROmorphone 0.5 mg/0.5 ml ISec ONE (10:03)
[2017-12-26] MEDS: Sodium Chloride 0.9% 1,000 ML IV SCH ×3 (10:45→19:45)
[2017-12-26] MEDS ORDERED: Potassium Phosphate 15 MMOLE in Sodium Chloride 0.9% 250 ML IVPB ONE (11:00)
--- NOTE | 2017-12-26 13:01 | CP.PCM.PN ---
<Jeanmarie Beck - Last Filed: 12/26/17 13:48> Subjective - Date & Time of Evaluation Date of Evaluation: 12/26/17 Time of Evaluation: 07:45 - Subjective Subjective: PGY2 Cardiology Progress Note for Dr. Issa Patient seen and examined at bedside. No acute distress. Patient is going for gallbladder removal today. She reports feeling well and is ready for the procedure. Denies f/c, chest pain, SOB, n/v, d/c, or any additional acute complaints. She is stable for surgery from a cardiology stand-point. Objective - Vital Signs/Intake and Output Vital Signs (last 24 hours): Temp Pulse Resp BP Pulse Ox 99.5 F 80 16 143/62 100 12/26/17 09:53 12/26/17 11:00 12/26/17 11:00 12/26/17 11:00 12/26/17 11:00 Intake and Output: 12/26/17 12/26/17 06:59 18:59 Intake Total 900 1700 Balance 900 1700 - Medications Medications: Current Medications Acetaminophen (Tylenol 325mg Tab) 650 mg PO Q6 PRN PRN Reason: Fever >100.4 F Last Admin: 12/25/17 22:44 Dose: 650 mg Dextrose (Dextrose 50% Inj) 0 ml IVP .STAT PRN; Protocol PRN Reason: Hypoglycemia Protocol Dextrose (Glutose 15) 15 gm PO .ONCE PRN; Protocol PRN Reason: Hypoglycemia Protocol Glucagon (Glucagen Diagnostic Kit) 1 mg IM .STAT PRN; Protocol PRN Reason: Hypoglycemia Protocol Hydromorphone HCl (Dilaudid) 0.5 mg IVP Q6H PRN PRN Reason: Pain, severe (8-10) Sodium Chloride (Sodium Chloride 0.9%) 1,000 mls @ 100 mls/hr IV .Q10H [facility] Last Admin: 12/26/17 00:00 Dose: Not Given Piperacillin Sod/Tazobactam Sod (Zosyn 3.375 Gm Iv Premix) 3.375 gm in 50 mls @ 100 mls/hr IVPB Q8H [facility] PRN Reason: Protocol Last Admin: 12/26/17 12:38 Dose: 100 mls/hr Metronidazole 250 mg/ (Miscellaneous) 50 mls @ 100 mls/hr IVPB Q8 [facility] PRN Reason: Protocol Last Admin: 12/26/17 05:21 Dose: 100 mls/hr Dextrose (Dextrose 5% In Water 1000 Ml) 1,000 mls @ 0 mls/hr IV .Q0M PRN; Protocol; Per Protocol PRN Reason: Hypoglycemia Protocol Dextrose/Sodium Chloride (Dextrose 5%/0.45% Ns 1000 Ml) 1,000 mls @ 100 mls/hr IV .Q10H [facility] Last Admin: 12/26/17 04:15 Dose: Not Given Potassium Phosphate 15 mmole/ (Sodium Chloride) 255 mls @ 42.5 mls/hr IVPB ONCE ONE Stop: 12/26/17 16:59 Last Admin: 12/26/17 12:37 Dose: 42.5 mls/hr Insulin Human Regular (Novolin R) 0 unit SC ACHS [facility] PRN Reason: Protocol Last Admin: 12/26/17 12:30 Dose: Not Given Ondansetron HCl (Zofran Inj) 4 mg IVP Q4 PRN PRN Reason: Nausea/Vomiting Last Admin: 12/24/17 22:36 Dose: 4 mg Pantoprazole Sodium (Protonix Inj) 40 mg IVP DAILY [facility] Last Admin: 12/26/17 12:37 Dose: 40 mg - Labs Labs: 12/26/17 06:02 12/26/17 06:02 PT 16.4 SECONDS (9.7-12.2) H 12/25/17 06:39 INR 1.4 12/25/17 06:39 APTT 34 SECONDS (21-34) 12/25/17 06:39 - Additional Findings Additional findings: - Constitutional Appears: Non-toxic, No Acute Distress - Head Exam Head Exam: ATRAUMATIC, NORMAL INSPECTION, NORMOCEPHALIC - Eye Exam Eye Exam: EOMI, Normal appearance Pupil Exam: NORMAL ACCOMODATION, PERRL - ENT Exam ENT Exam: Mucous Membranes Moist, Normal Exam - Respiratory Exam Respiratory Exam: Clear to Ausculation Bilateral, NORMAL BREATHING PATTERN. absent: Accessory Muscle Use - Cardiovascular Exam Cardiovascular Exam: REGULAR RHYTHM, +S1, +S2; absent: JVD, Murmur - GI/Abdominal Exam GI & Abdominal Exam: Soft, Tenderness. absent: Guarding, Rigid, Rebound - Extremities Exam Extremities Exam: Full ROM. absent: Pedal Edema - Back Exam Back Exam: Full ROM, NORMAL INSPECTION - Neurological Exam Neurological Exam: Alert, Awake, CN II-XII Intact, Oriented x3 - Psychiatric Exam Psychiatric exam: Normal Affect, Normal Mood - Skin Skin Exam: Dry, Intact, Normal Color, Warm Assessment and Plan - Assessment and Plan (Free Text) Assessment: Cholecystitis 12/26: pt heading to OR today for surgery - planned cholecystectomy Resume anticoagulation as soon as possible -Consulted for Pre Op Cardiac risk assessment - Assessed as low to moderate cardiac risk for Cholecystectomy under general anaesthesia -Recent cath 11/2017: Normal coronaries and normal EF Case Discussed with Dr. Luis Manuel Beck, PGY2 <Ady Issa - Last Filed: 12/27/17 09:13> Objective - Vital Signs/Intake and Output Vital Signs (last 24 hours): Temp Pulse Resp BP Pulse Ox 98.3 F 79 20 122/75 96 12/27/17 08:00 12/27/17 08:00 12/27/17 08:00 12/27/17 08:00 12/27/17 08:00 Intake and Output: 12/27/17 12/27/17 06:59 18:59 Intake Total 1320 Balance 1320 - Medications Medications: Current Medications Acetaminophen (Tylenol 325mg Tab) 650 mg PO Q6 PRN PRN Reason: Fever >100.4 F Last Admin: 12/25/17 22:44 Dose: 650 mg Dextrose (Dextrose 50% Inj) 0 ml IVP .STAT PRN; Protocol PRN Reason: Hypoglycemia Protocol Dextrose (Glutose 15) 15 gm PO .ONCE PRN; Protocol PRN Reason: Hypoglycemia Protocol Glucagon (Glucagen Diagnostic Kit) 1 mg IM .STAT PRN; Protocol PRN Reason: Hypoglycemia Protocol Hydromorphone HCl (Dilaudid) 0.5 mg IVP Q6H PRN PRN Reason: Pain, severe (8-10) Last Admin: 12/27/17 06:35 Dose: 0.5 mg Piperacillin Sod/Tazobactam Sod (Zosyn 3.375 Gm Iv Premix) 3.375 gm in 50 mls @ 100 mls/hr IVPB Q8H [facility] PRN Reason: Protocol Last Admin: 12/27/17 05:30 Dose: 100 mls/hr Metronidazole 250 mg/ (Miscellaneous) 50 mls @ 100 mls/hr IVPB Q8 [facility] PRN Reason: Protocol Last Admin: 12/27/17 06:28 Dose: 100 mls/hr Dextrose (Dextrose 5% In Water 1000 Ml) 1,000 mls @ 0 mls/hr IV .Q0M PRN; Protocol; Per Protocol PRN Reason: Hypoglycemia Protocol Dextrose/Sodium Chloride (Dextrose 5%/0.45% Ns 1000 Ml) 1,000 mls @ 100 mls/hr IV .Q10H [facility] Last Admin: 12/27/17 00:30 Dose: 100 mls/hr Insulin Human Regular (Novolin R) 0 unit SC ACHS [facility] PRN Reason: Protocol Last Admin: 12/27/17 08:35 Dose: 2 unit Ondansetron HCl (Zofran Inj) 4 mg IVP Q4 PRN PRN Reason: Nausea/Vomiting Last Admin: 12/24/17 22:36 Dose: 4 mg Pantoprazole Sodium (Protonix Inj) 40 mg IVP DAILY [facility] Last Admin: 12/26/17 12:37 Dose: 40 mg - Labs Labs: 12/27/17 07:18 12/27/17 07:18 PT 16.4 SECONDS (9.7-12.2) H 12/25/17 06:39 INR 1.4 12/25/17 06:39 APTT 34 SECONDS (21-34) 12/25/17 06:39 Assessment and Plan - Assessment and Plan (Free Text) Plan: Patient seen and evaluated personally by me Plan of care d/w the resident and as documented
[2017-12-26 16:34] VITALS: RESP 20
[2017-12-26] MEDS: HYDROmorphone 0.5 mg/0.5 ml ISec IVP PRN (22:13)
--- NOTE | 2017-12-26 23:03 | OP ---
PROCEDURE DATE: 12/26/2017 SURGEON: Jefe Hendricks MD ASSISTANTS: Dr. Orellana and Dr. Barker. TYPE OF ANESTHESIA: General. ANESTHESIA ADMINISTERED BY: Dr. Garcia. PREOPERATIVE DIAGNOSIS: Acute cholecystitis. POSTOPERATIVE DIAGNOSIS: Acute cholecystitis. PROCEDURE: Laparoscopic cholecystectomy. DESCRIPTION OF PROCEDURE: With the patient in the supine position under adequate general anesthesia, the abdomen was prepped and draped in the usual sterile manner. The patient is status post hysterectomy and umbilical hernia repair and a short midline incision was made above the umbilicus and above the palpable umbilical mesh, taken down through the subcutaneous tissue. The fascia was incised in the midline and the peritoneum elevated and incised to enter the peritoneal cavity. A small amount of omental adhesions were noted to the area below the incision, but free peritoneum was noted above the area of the incision and the Laura catheter was positioned in the free space, sutured into position with 0-Vicryl sutures. Pneumoperitoneum was then obtained to 15 cm water pressure of CO2 and under direct vision, additional trocars were inserted in the epigastrium and the right costal margin. There was moderate amount of omentum covering the area of the appendix and this was taken down with the harmonic scalpel and the gallbladder was exposed. The gallbladder was grasped and it was noted that upon puncturing the gallbladder, there was what appeared to be purulent bile draining from the gallbladder, although the gallbladder itself was not grossly necrotic. The gallbladder fundus was grasped and elevated and adhesions were taken down bluntly or with the Harmonic to expose the gallbladder fundus. The fundus was grasped and retracted laterally. The cystic artery was identified passing anterior to the junction with the cystic duct on to the surface of the gallbladder and the cystic artery was dissected and then triply clipped and divided, allowing the visualization of the cystic duct. The cystic duct was dissected towards the junction with the common bile duct and triply clipped and divided closer to the body of the gallbladder. The gallbladder was then dissected free off the liver bed using the electrocautery. The gallbladder was adherent to the liver bed due to inflammation and portions of the back wall remained adherent to the liver bed and were cauterized. The dissection was completed and the gallbladder was placed in a specimen retrieval bag and removed via the umbilical port site. The right upper quadrant was irrigated and suctioned. Pneumoperitoneum was relieved and the trocars removed. The umbilical port site was closed with fascial sutures of 0-Vicryl. All incisions were closed with 4-0 Monocryl subcuticular sutures and Steri-Strips. Dry sterile dressings were applied. The patient tolerated the procedure well and transferred to recovery room in stable condition. Estimated blood loss for the procedure was 50 mL. Jefe Hendricks MD
[2017-12-27] MEDS: Dextrose 5%/0.45% NS 1,000 ML IV SCH (00:30)
[2017-12-27] MEDS: Piperacill/Tazo 3.375gm in Dex 3.375 GM/50 ML BAG IVPB SCH ×3 (05:30→21:28)
[2017-12-27] MEDS: Sodium Chloride 0.9% 1,000 ML IV SCH ×2 (05:45→17:34)
[2017-12-27] MEDS: metroNIDAZOLE IV 500 mg/100 ml 250 MG in Premixed IV 1 EA IVPB SCH ×3 (06:28→22:30)
[2017-12-27] MEDS: HYDROmorphone 0.5 mg/0.5 ml ISec IVP PRN ×2 (06:35→12:33)
[2017-12-27 07:23] LABS: HEMOGLOBIN 10.9 g/dL (11.0-16.0); MEAN CELL VOLUME 93.9 fL (81.0-99.0); MEAN CORPUSCULAR HEMOGLOBIN 31.6 pg (27.0-31.0); MEAN CORPUSCULAR HGB CONC 33.6 g/dL (33.0-37.0); MEAN PLATELET VOLUME 9.5 fL (7.2-11.7); RBC 3.44 Mil/uL (3.80-5.20); RED CELL DISTRIBUTION WIDTH 13.2 % (11.5-14.5)
[2017-12-27 07:43] LABS: ALB/GLOB RATIO 0.9 (1.0-2.1); ALBUMIN 2.6 g/dL (3.5-5.0); ALT/SGPT 34 U/L (9-52); AST/SGOT 26 U/L (14-36); BLOOD UREA NITROGEN 8 mg/dL (7-17); CALCIUM 7.4 mg/dl (8.6-10.4); GFR AFRICAN-AMERICAN > 60; GFR NON-AFRICAN AMERICAN > 60
[2017-12-27] MEDS: (Novolin R) Insulin Human Regular 100 units/ml vial SC SCH ×4 (08:35→21:27)
[2017-12-27] MEDS ORDERED: Potassium Chloride 20 mEq/15 ml LIQ UD PO ONE (08:40)
--- NOTE | 2017-12-27 09:20 | CP.PCM.PN ---
Subjective - Date & Time of Evaluation Date of Evaluation: 12/27/17 Time of Evaluation: 08:00 - Subjective Subjective: Surgery Progress note. Dr. Hendricks Pt seen and examined at bedside. No acute events overnight. No F/C. c/o gas type pain. Denies appetite. Denies getting up for ambulation. Objective - Vital Signs/Intake and Output Vital Signs (last 24 hours): Temp Pulse Resp BP Pulse Ox 98.3 F 79 20 122/75 96 12/27/17 08:00 12/27/17 08:00 12/27/17 08:00 12/27/17 08:00 12/27/17 08:00 Intake and Output: 12/27/17 12/27/17 06:59 18:59 Intake Total 1320 Balance 1320 - Medications Medications: Current Medications Acetaminophen (Tylenol 325mg Tab) 650 mg PO Q6 PRN PRN Reason: Fever >100.4 F Last Admin: 12/25/17 22:44 Dose: 650 mg Dextrose (Dextrose 50% Inj) 0 ml IVP .STAT PRN; Protocol PRN Reason: Hypoglycemia Protocol Dextrose (Glutose 15) 15 gm PO .ONCE PRN; Protocol PRN Reason: Hypoglycemia Protocol Glucagon (Glucagen Diagnostic Kit) 1 mg IM .STAT PRN; Protocol PRN Reason: Hypoglycemia Protocol Hydromorphone HCl (Dilaudid) 0.5 mg IVP Q6H PRN PRN Reason: Pain, severe (8-10) Last Admin: 12/27/17 06:35 Dose: 0.5 mg Piperacillin Sod/Tazobactam Sod (Zosyn 3.375 Gm Iv Premix) 3.375 gm in 50 mls @ 100 mls/hr IVPB Q8H [facility] PRN Reason: Protocol Last Admin: 12/27/17 05:30 Dose: 100 mls/hr Metronidazole 250 mg/ (Miscellaneous) 50 mls @ 100 mls/hr IVPB Q8 [facility] PRN Reason: Protocol Last Admin: 12/27/17 06:28 Dose: 100 mls/hr Dextrose (Dextrose 5% In Water 1000 Ml) 1,000 mls @ 0 mls/hr IV .Q0M PRN; Protocol; Per Protocol PRN Reason: Hypoglycemia Protocol Dextrose/Sodium Chloride (Dextrose 5%/0.45% Ns 1000 Ml) 1,000 mls @ 100 mls/hr IV .Q10H [facility] Last Admin: 12/27/17 00:30 Dose: 100 mls/hr Insulin Human Regular (Novolin R) 0 unit SC ACHS [facility] PRN Reason: Protocol Last Admin: 12/27/17 08:35 Dose: 2 unit Ondansetron HCl (Zofran Inj) 4 mg IVP Q4 PRN PRN Reason: Nausea/Vomiting Last Admin: 12/24/17 22:36 Dose: 4 mg Pantoprazole Sodium (Protonix Inj) 40 mg IVP DAILY [facility] Last Admin: 12/26/17 12:37 Dose: 40 mg - Labs Labs: 12/27/17 07:18 12/27/17 07:18 PT 16.4 SECONDS (9.7-12.2) H 12/25/17 06:39 INR 1.4 12/25/17 06:39 APTT 34 SECONDS (21-34) 12/25/17 06:39 - Constitutional Appears: Non-toxic, No Acute Distress - Head Exam Head Exam: ATRAUMATIC, NORMAL INSPECTION, NORMOCEPHALIC - Eye Exam Eye Exam: EOMI, Normal appearance - ENT Exam ENT Exam: Mucous Membranes Moist - Respiratory Exam Respiratory Exam: NORMAL BREATHING PATTERN. absent: Accessory Muscle Use, Respiratory Distress - Cardiovascular Exam Cardiovascular Exam: RRR. absent: JVD - GI/Abdominal Exam GI & Abdominal Exam: Soft. absent: Distended, Guarding, Rebound Additional comments: incisions clean, dry and intact. - Extremities Exam Extremities Exam: Normal Inspection. absent: Calf Tenderness - Neurological Exam Neurological Exam: Alert, Awake, Oriented x3 - Psychiatric Exam Psychiatric exam: Normal Affect, Normal Mood - Skin Skin Exam: Dry, Intact, Normal Color, Warm Assessment and Plan - Assessment and Plan (Free Text) Assessment: 77yo F s/p Lap Susanne. POD1 Plan: - continue Abx - Encourage OOBTC, Encourage Ambulation and IS use - f/u AM labs Further recs as per Dr. Eladio Barker PGY1 surgery pager: [phone]
[2017-12-27] MEDS ORDERED: Oxycodone/Acetaminophen 5/325 mg Tab PO PRN (09:28)
--- NOTE | 2017-12-27 11:58 | CP.PCM.PN ---
Subjective - Date & Time of Evaluation Date of Evaluation: 12/27/17 Time of Evaluation: 07:50 - Subjective Subjective: PGY2 Cardiology Progress Note for Dr. Issa Patient seen and examined at bedside. No acute distress. She is POD#1 s/p Cholecystectomy. Denies f/c, chest pain, SOB, n/v, d/c, or any additional acute complaints. She is stable for surgery from a cardiology stand-point. Objective - Vital Signs/Intake and Output Vital Signs (last 24 hours): Temp Pulse Resp BP Pulse Ox 98.3 F 79 20 122/75 96 12/27/17 08:00 12/27/17 08:00 12/27/17 08:00 12/27/17 08:00 12/27/17 08:00 Intake and Output: 12/27/17 12/27/17 06:59 18:59 Intake Total 1320 Balance 1320 - Medications Medications: Current Medications Acetaminophen (Tylenol 325mg Tab) 650 mg PO Q6 PRN PRN Reason: Fever >100.4 F Last Admin: 12/25/17 22:44 Dose: 650 mg Dextrose (Dextrose 50% Inj) 0 ml IVP .STAT PRN; Protocol PRN Reason: Hypoglycemia Protocol Dextrose (Glutose 15) 15 gm PO .ONCE PRN; Protocol PRN Reason: Hypoglycemia Protocol Glucagon (Glucagen Diagnostic Kit) 1 mg IM .STAT PRN; Protocol PRN Reason: Hypoglycemia Protocol Hydromorphone HCl (Dilaudid) 0.5 mg IVP Q6H PRN PRN Reason: Pain, severe (8-10) Last Admin: 12/27/17 06:35 Dose: 0.5 mg Piperacillin Sod/Tazobactam Sod (Zosyn 3.375 Gm Iv Premix) 3.375 gm in 50 mls @ 100 mls/hr IVPB Q8H [facility] PRN Reason: Protocol Last Admin: 12/27/17 05:30 Dose: 100 mls/hr Metronidazole 250 mg/ (Miscellaneous) 50 mls @ 100 mls/hr IVPB Q8 [facility] PRN Reason: Protocol Last Admin: 12/27/17 06:28 Dose: 100 mls/hr Dextrose (Dextrose 5% In Water 1000 Ml) 1,000 mls @ 0 mls/hr IV .Q0M PRN; Protocol; Per Protocol PRN Reason: Hypoglycemia Protocol Dextrose/Sodium Chloride (Dextrose 5%/0.45% Ns 1000 Ml) 1,000 mls @ 100 mls/hr IV .Q10H [facility] Last Admin: 12/27/17 00:30 Dose: 100 mls/hr Insulin Human Regular (Novolin R) 0 unit SC ACHS [facility] PRN Reason: Protocol Last Admin: 12/27/17 08:35 Dose: 2 unit Ondansetron HCl (Zofran Inj) 4 mg IVP Q4 PRN PRN Reason: Nausea/Vomiting Last Admin: 12/24/17 22:36 Dose: 4 mg Oxycodone/Acetaminophen (Percocet 5/325 Mg Tab) 1 tab PO Q6H PRN PRN Reason: Pain, moderate (4-7) Stop: 12/30/17 09:29 Pantoprazole Sodium (Protonix Inj) 40 mg IVP DAILY [facility] [place] Last Admin: 12/27/17 09:20 Dose: 40 mg - Labs Labs: 12/27/17 07:18 12/27/17 07:18 PT 16.4 SECONDS (9.7-12.2) H 12/25/17 06:39 INR 1.4 12/25/17 06:39 APTT 34 SECONDS (21-34) 12/25/17 06:39 - Additional Findings Additional findings: - Constitutional Appears: Non-toxic, No Acute Distress - Head Exam Head Exam: ATRAUMATIC, NORMAL INSPECTION, NORMOCEPHALIC - Eye Exam Eye Exam: EOMI, Normal appearance Pupil Exam: NORMAL ACCOMODATION, PERRL - ENT Exam ENT Exam: Mucous Membranes Moist, Normal Exam - Respiratory Exam Respiratory Exam: Clear to Ausculation Bilateral, NORMAL BREATHING PATTERN. absent: Accessory Muscle Use - Cardiovascular Exam Cardiovascular Exam: REGULAR RHYTHM, +S1, +S2; absent: JVD, Murmur - GI/Abdominal Exam GI & Abdominal Exam: Soft, Tenderness (kena-incisional). absent: Guarding, Rigid, Rebound - bandages C/D/I - Extremities Exam Extremities Exam: Full ROM. absent: Pedal Edema - Back Exam Back Exam: Full ROM, NORMAL INSPECTION - Neurological Exam Neurological Exam: Alert, Awake, CN II-XII Intact, Oriented x3 - Psychiatric Exam Psychiatric exam: Normal Affect, Normal Mood - Skin Skin Exam: Dry, Intact, Normal Color, Warm Assessment and Plan - Assessment and Plan (Free Text) Assessment: Cholecystitis 12/27: s/p Lap Cholesystectomy, POD1. Cardiology is following. BP 122/75, HR 79. Resume Elequis 2.5mg PO BID if appropriate per surgical team. 12/26: pt heading to OR today for surgery - planned cholecystectomy Resume anticoagulation as soon as possible -Consulted for Pre Op Cardiac risk assessment - Assessed as low to moderate cardiac risk for Cholecystectomy under general anaesthesia -Recent cath 11/2017: Normal coronaries and normal EF Case Discussed with Dr. Luis Manuel Beck, PGY2
--- NOTE | 2017-12-27 21:41 | CARD ---
APPROVED REPORT EKG Measurement Heart [id number] MD [id number] <Conclusion> Normal sinus rhythm Normal ECG
[2017-12-28] MEDS ORDERED: guaiFENesin 200 mg/10 ml Syrup UD PO ONE (00:06)
[2017-12-28] MEDS: Sodium Chloride 0.9% 1,000 ML IV SCH (04:00)
[2017-12-28] MEDS: Piperacill/Tazo 3.375gm in Dex 3.375 GM/50 ML BAG IVPB SCH ×2 (04:15→13:45)
[2017-12-28] MEDS: metroNIDAZOLE IV 500 mg/100 ml 250 MG in Premixed IV 1 EA IVPB SCH ×2 (05:11→13:46)
[2017-12-28 06:27] LABS: HEMOGLOBIN 10.6 g/dL (11.0-16.0); MEAN CORPUSCULAR HEMOGLOBIN 31.8 pg (27.0-31.0); MEAN CORPUSCULAR HGB CONC 33.8 g/dL (33.0-37.0); MEAN PLATELET VOLUME 8.9 fL (7.2-11.7); RBC 3.33 Mil/uL (3.80-5.20); RED CELL DISTRIBUTION WIDTH 13.1 % (11.5-14.5); WHITE BLOOD COUNT 13.6 K/uL (4.8-10.8)
--- NOTE | 2017-12-28 07:15 | CP.PCM.PN ---
Subjective - Date & Time of Evaluation Date of Evaluation: 12/28/17 Time of Evaluation: 07:12 - Subjective Subjective: General Surgery: Dr Hendricks Pt S&E. PRINCE. Pt reports pain is much improved. Tolerating diet. Has been OOB. Passing flatus. Denies N/V, F/C. Objective - Vital Signs/Intake and Output Vital Signs (last 24 hours): Temp Pulse Resp BP Pulse Ox 98.2 F 93 H 20 137/80 94 L 12/28/17 00:00 12/28/17 00:00 12/28/17 00:00 12/28/17 00:00 12/28/17 00:00 Intake and Output: 12/28/17 12/28/17 06:59 18:59 Intake Total 1820 Balance 1820 - Medications Medications: Current Medications Acetaminophen (Tylenol 325mg Tab) 650 mg PO Q6 PRN PRN Reason: Fever >100.4 F Last Admin: 12/25/17 22:44 Dose: 650 mg Apixaban (Eliquis) 2.5 mg PO BID [facility] Dextrose (Dextrose 50% Inj) 0 ml IVP .STAT PRN; Protocol PRN Reason: Hypoglycemia Protocol Dextrose (Glutose 15) 15 gm PO .ONCE PRN; Protocol PRN Reason: Hypoglycemia Protocol Glucagon (Glucagen Diagnostic Kit) 1 mg IM .STAT PRN; Protocol PRN Reason: Hypoglycemia Protocol Hydromorphone HCl (Dilaudid) 0.5 mg IVP Q6H PRN PRN Reason: Pain, severe (8-10) Last Admin: 12/27/17 12:33 Dose: 0.5 mg Piperacillin Sod/Tazobactam Sod (Zosyn 3.375 Gm Iv Premix) 3.375 gm in 50 mls @ 100 mls/hr IVPB Q8H [facility] PRN Reason: Protocol Last Admin: 12/28/17 04:15 Dose: 100 mls/hr Metronidazole 250 mg/ (Miscellaneous) 50 mls @ 100 mls/hr IVPB Q8 [facility] PRN Reason: Protocol Last Admin: 12/28/17 05:11 Dose: 100 mls/hr Insulin Human Regular (Novolin R) 0 unit SC ACHS [facility] PRN Reason: Protocol Last Admin: 12/27/17 21:27 Dose: Not Given Ondansetron HCl (Zofran Inj) 4 mg IVP Q4 PRN PRN Reason: Nausea/Vomiting Last Admin: 12/28/17 00:36 Dose: 4 mg Oxycodone/Acetaminophen (Percocet 5/325 Mg Tab) 1 tab PO Q6H PRN PRN Reason: Pain, moderate (4-7) Stop: 12/30/17 09:29 Last Admin: 12/27/17 22:37 Dose: 1 tab Pantoprazole Sodium (Protonix Inj) 40 mg IVP DAILY [facility] Last Admin: 12/27/17 09:20 Dose: 40 mg - Labs Labs: 12/28/17 06:18 12/27/17 07:18 PT 16.4 SECONDS (9.7-12.2) H 12/25/17 06:39 INR 1.4 12/25/17 06:39 APTT 34 SECONDS (21-34) 12/25/17 06:39 - Constitutional Appears: Non-toxic, No Acute Distress - Head Exam Head Exam: NORMAL INSPECTION - ENT Exam ENT Exam: Mucous Membranes Moist - Respiratory Exam Respiratory Exam: absent: Accessory Muscle Use, Respiratory Distress - Cardiovascular Exam Cardiovascular Exam: REGULAR RHYTHM - GI/Abdominal Exam GI & Abdominal Exam: Soft, Tenderness (post-op and appropriate), Hernia ( umbilical). absent: Distended, Firm, Guarding, Rigid, Mass, Rebound - Neurological Exam Neurological Exam: Alert, Awake, Oriented x3 - Psychiatric Exam Psychiatric exam: Normal Affect, Normal Mood - Skin Skin Exam: Normal Color, Warm Assessment and Plan - Assessment and Plan (Free Text) Assessment: 77F POD#2 s/p lap alicia Plan: pt tolerating diet. HgB stable wbc trending down pt is clear for discharge from surgical standpoint will d/w Dr Eladio Orellana, PGY3
[2017-12-28 07:40] LABS: ALB/GLOB RATIO 0.8 (1.0-2.1); ALBUMIN 2.4 g/dL (3.5-5.0); ALT/SGPT 29 U/L (9-52); AST/SGOT 16 U/L (14-36); BLOOD UREA NITROGEN 8 mg/dL (7-17); CALCIUM 7.1 mg/dl (8.6-10.4); GFR AFRICAN-AMERICAN > 60; GFR NON-AFRICAN AMERICAN > 60
[2017-12-28 08:07] VITALS: PULSE 88; TEMP 97.6; O2SAT 95
--- NOTE | 2017-12-28 08:41 | RAD ---
HISTORY: ivf COMPARISON: 12/24/2017 FINDINGS: LUNGS: No active pulmonary disease. PLEURA: Elevated left hemidiaphragm may reflect a subpulmonic pleural effusion. No right pleural effusion. No pneumothorax. CARDIOVASCULAR: Normal. OSSEOUS STRUCTURES: No significant abnormalities. VISUALIZED UPPER ABDOMEN: Normal. OTHER FINDINGS: None. IMPRESSION: No infiltrate. Opacity at left costophrenic angle may reflect subpulmonic left pleural effusion.
[2017-12-28] MEDS ORDERED: Potassium Chloride 20 mEq ER Tab PO ONE ×2 (09:30→10:45)
[2017-12-28] MEDS: (Novolin R) Insulin Human Regular 100 units/ml vial SC SCH ×3 (10:31→17:04)
[2017-12-28] MEDS: HYDROmorphone 0.5 mg/0.5 ml ISec IVP PRN (10:48)
[2017-12-28 12:39] VITALS: BP 128/78
--- NOTE | 2017-12-28 13:52 | CP.PCM.DIS ---
<Gibran Mcpherson - Last Filed: 12/28/17 14:54> Provider - Provider Date of Admission: 12/24/17 07:50 Attending physician: Jeanmarie Ramirez DO Primary care physician: Dr. Gutierrez Consults: Surgery: Dr. Hendricks Cardiology: Dr. Issa Time Spent in preparation of Discharge (in minutes): 40 Diagnosis - Discharge Diagnosis (1) Acute cholecystitis Status: Acute Priority: High (2) History of atrial fibrillation Status: Chronic Priority: High (3) Diabetes mellitus Status: Chronic Priority: Medium (4) History of hypertension Status: Chronic Priority: Medium Hospital Course - Lab Results Lab Results: Micro Results 12/24/17 08:00 Blood Blood Culture - Preliminary NO GROWTH AFTER 3 DAYS 12/24/17 07:50 Blood Blood Culture - Preliminary NO GROWTH AFTER 3 DAYS 12/24/17 07:50 Urine Urine Culture - Final 10-50,000 CFU/ML. MULTIPLE SPECIES. PROBABLE CONTAMINATION. Most Recent Lab Values WBC 13.6 K/uL (4.8-10.8) H 12/28/17 06:18 RBC 3.33 Mil/uL (3.80-5.20) L 12/28/17 06:18 Hgb 10.6 g/dL (11.0-16.0) L 12/28/17 06:18 Hct 31.3 % (34.0-47.0) L 12/28/17 06:18 MCV 94.0 fL (81.0-99.0) 12/28/17 06:18 MCH 31.8 pg (27.0-31.0) H 12/28/17 06:18 MCHC 33.8 g/dL (33.0-37.0) 12/28/17 06:18 RDW 13.1 % (11.5-14.5) 12/28/17 06:18 Plt Count 238 K/uL (130-400) 12/28/17 06:18 MPV 8.9 fL (7.2-11.7) 12/28/17 06:18 Neut % (Auto) 84.0 % (50.0-75.0) H 12/26/17 06:02 Lymph % (Auto) 6.6 % (20.0-40.0) L 12/26/17 06:02 [place] % (Auto) 8.2 % (0.0-10.0) 12/26/17 06:02 Eos % (Auto) 0.8 % (0.0-4.0) 12/26/17 06:02 Baso % (Auto) 0.4 % (0.0-2.0) 12/26/17 06:02 Neut # (Auto) 16.1 K/uL (1.8-7.0) H 12/26/17 06:02 Lymph # (Auto) 1.3 K/uL (1.0-4.3) 12/26/17 06:02 [place] # (Auto) 1.6 K/uL (0.0-0.8) H 12/26/17 06:02 Eos # (Auto) 0.2 K/uL (0.0-0.7) 12/26/17 06:02 Baso # (Auto) 0.1 K/uL (0.0-0.2) 12/26/17 06:02 Neutrophils % (Manual) 80 % (50-75) H 12/26/17 06:02 Band Neutrophils % 2 % (0-2) 12/26/17 06:02 Lymphocytes % (Manual) 9 % (20-40) L 12/26/17 06:02 Monocytes % (Manual) 9 % (0-10) 12/26/17 06:02 Platelet Estimate Normal (NORMAL) 12/26/17 06:02 Poikilocytosis (manual Slight 12/25/17 06:39 Anisocytosis (manual) Slight 12/25/17 06:39 Tear Drop Cells Slight 12/25/17 06:39 PT 16.4 SECONDS (9.7-12.2) H 12/25/17 06:39 INR 1.4 12/25/17 06:39 APTT 34 SECONDS (21-34) 12/25/17 06:39 Sodium 139 mmol/L (132-148) 12/28/17 06:18 Potassium 3.2 mmol/L (3.6-5.2) L 12/28/17 06:18 Chloride 106 mmol/L (98-107) 12/28/17 06:18 Carbon Dioxide 25 mmol/L (22-30) 12/28/17 06:18 Anion Gap 12 (10-20) 12/28/17 06:18 BUN 8 mg/dL (7-17) 12/28/17 06:18 Creatinine 0.4 mg/dL (0.7-1.2) L 12/28/17 06:18 Est GFR ( Amer) > 60 12/28/17 06:18 Est GFR (Non-Af Amer) > 60 12/28/17 06:18 POC Glucose (mg/dL) 141 mg/dL (65-110) H 12/28/17 10:48 Random Glucose 99 mg/dL (65-105) 12/28/17 06:18 Hemoglobin A1c 6.3 % (4.2-6.5) 12/24/17 09:11 Calcium 7.1 mg/dl (8.6-10.4) L 12/28/17 06:18 Phosphorus 1.7 mg/dL (2.5-4.5) L 12/26/17 06:02 Magnesium 1.8 mg/dL (1.6-2.3) 12/26/17 06:02 Total Bilirubin 0.7 mg/dL (0.2-1.3) 12/28/17 06:18 AST 16 U/L (14-36) 12/28/17 06:18 ALT 29 U/L (9-52) 12/28/17 06:18 Alkaline Phosphatase 55 U/L (38-126) 12/28/17 06:18 Total Protein 5.4 g/dL (6.3-8.3) L 12/28/17 06:18 Albumin 2.4 g/dL (3.5-5.0) L 12/28/17 06:18 Globulin 3.0 gm/dL (2.2-3.9) 12/28/17 06:18 Albumin/Globulin Ratio 0.8 (1.0-2.1) L 12/28/17 06:18 Lipase 140 U/L (23-300) 12/24/17 01:33 Urine Color Yellow (YELLOW) 12/24/17 05:07 Urine Clarity Hazy (Clear) 12/24/17 05:07 Urine pH 5.0 (5.0-8.0) 12/24/17 05:07 Ur Specific [place] 1.033 (1.003-1.030) H 12/24/17 05:07 Urine Protein Negative mg/dL (NEGATIVE) 12/24/17 05:07 Urine Glucose (UA) Normal mg/dL (Normal) 12/24/17 05:07 Urine Ketones Trace mg/dL (NEGATIVE) 12/24/17 05:07 Urine Blood Negative (NEGATIVE) 12/24/17 05:07 Urine Nitrate Negative (NEGATIVE) 12/24/17 05:07 Urine Bilirubin Negative (NEGATIVE) 12/24/17 05:07 Urine Urobilinogen Normal mg/dL (0.2-1.0) 12/24/17 05:07 Ur Leukocyte Esterase 2+ [place]/uL (Negative) H 12/24/17 05:07 Urine WBC (Auto) 57 /hpf (0-5) H 12/24/17 05:07 Urine RBC (Auto) 1 /hpf (0-3) 12/24/17 05:07 Ur Squamous Epith Cells < 1 /hpf (0-5) 12/24/17 05:07 Urine Bacteria Rare (<OCC) 12/24/17 05:07 Hyaline Casts 6-10 /lpf (0-2) H 12/24/17 05:07 Granular Casts (Auto) 1 /lpf (0-1) 12/24/17 05:07 - Hospital Course Hospital Course: Initial note: "77 year old female with past medical history hypertension, diabetes, hyperlipidemia, anxiety, and atrial fibrillation on Eliquis presents to the ED with abdominal pain and vomiting. History per patient's daughter, patient's abdominal pain started on 12/21/17 shortly after having a colonoscopy with Dr. Friend. The pain is located right upper abdominal quadrant and epigastrium. Patient tried taking over the counter Pepto-Bismol without relief. The abdominal pain became worse last night and the patient started vomiting several times which prompted patient to come to the ED. Daughter reports the vomits were yellow in color, no blood were seen. Patient denies having fever, headache , shortness of breath, chest pain, or urinary symptoms. Patient recently had a cardiac cath at [facility] with Dr. Issa." Hospital Course: Patient admitted for acute cholecystitis. Surgeon Dr. 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 Issa was consulted for clearance for surgery. Patient cleared for laparoscopic cholecystectomy which was performed on 12/26/17. Patient tolerated the procedure, and leukocytosis was downtrending. Patient was cleared for discharge per surgical team. Patient tolerated soft foods and her pain was better controlled at the time of discharge. She is to follow up with Dr. Gutierrez, Dr. Issa, and Dr. Hendricks. This is a summary of the hospital course. For more information, refer to the medical records. Discharge Exam - Head Exam Head Exam: ATRAUMATIC, NORMOCEPHALIC - Eye Exam Eye Exam: EOMI, Normal appearance - ENT Exam ENT Exam: Mucous Membranes Moist - Respiratory Exam Respiratory Exam: Clear to PA & Lateral, NORMAL BREATHING PATTERN. absent: Rales, Rhonchi, Wheezes - Cardiovascular Exam Cardiovascular Exam: REGULAR RHYTHM, +S1, +S2 - GI/Abdominal Exam GI & Abdominal Exam: Hernia (umbilical hernia), Normal Bowel Sounds, Soft, Tenderness (post-operative tenderness to palpation) Additional comments: Abdominal dressings were clean, dry, and intact - Extremities Exam Extremities exam: pedal pulses present - Neurological Exam Neurological exam: Alert, CN II-XII Intact, Oriented x3 - Psychiatric Exam Psychiatric exam: Normal Affect, Normal Mood - Skin Skin Exam: Dry, Warm Discharge Plan - Discharge Medications Prescriptions: Furosemide [Lasix] 20 mg PO DAILY #3 tab Naproxen 500 mg PO BID PRN #10 tablet PRN Reason: Pain, Severe (8-10) - Follow Up Plan Condition: STABLE Disposition: HOME/ ROUTINE Instructions: Cholecystectomy (DC), Furosemide, Naproxen, Cholecystitis (DC) Additional Instructions: Please follow up with the surgeon Dr. Hendricks within 1 week. Please resume your home medications. Please also follow up with Dr. Gutierrez within 1 week as well. Please follow up with Dr. Issa at your next scheduled appointment. For pain, please take Naproxen 500 mg twice a day ONLY if needed for pain. It must be taken with soft food. Continue the home Omeprazole, and make sure to take it everyday to protect the stomach especially when taking pain medications. Please take the water pill Lasix 20 mg once a day for the next 3 days. If there are any new or worsening symptoms, please return to the emergency room. Por favor, taylor un seguimiento con el ciruroland Hendricks dentro de 1 semana. Por favor, retome los medicamentos de up casa. Tambin taylor un seguimiento con el Dr. Gutierrez dentro de 1 semana tambin. Por favor, taylor un seguimiento con el Dr. Issa en up prxima chandrika programada. Para el dolor, tome Naproxen 500 mg dos veces al da SOLAMENTE si es necesario para el dolor. Debe tomarse con alimentos blandos. Contine con Omeprazol en el hogar y asegrese de tomarlo todos los morrison para proteger el estmago, especialmente cuando francisco analgsicos. Por favor, tome la pldora de agua Lasix 20 mg sharri vez al da casie los pr ximos 3 morrison. Si hay sntomas nuevos o que empeoran, regrese a la jose de emergencias. Referrals: Ady Issa MD [Staff Provider] - Jefe Hendricks MD [Staff Provider] - Kenn Gutierrez MD [Staff Provider] - <Jeanmarie Ramirez - Last Filed: 12/28/17 15:32> Provider - Provider Date of Admission: 12/24/17 07:50 Attending physician: Jeanmarie Ramirez DO Hospital Course - Lab Results Lab Results: Micro Results 12/24/17 08:00 Blood Blood Culture - Preliminary NO GROWTH AFTER 4 DAYS 12/24/17 07:50 Blood Blood Culture - Preliminary NO GROWTH AFTER 4 DAYS 12/24/17 07:50 Urine Urine Culture - Final 10-50,000 CFU/ML. MULTIPLE SPECIES. PROBABLE CONTAMINATION. Most Recent Lab Values WBC 13.6 K/uL (4.8-10.8) H 12/28/17 06:18 RBC 3.33 Mil/uL (3.80-5.20) L 12/28/17 06:18 Hgb 10.6 g/dL (11.0-16.0) L 12/28/17 06:18 Hct 31.3 % (34.0-47.0) L 12/28/17 06:18 MCV 94.0 fL (81.0-99.0) 12/28/17 06:18 MCH 31.8 pg (27.0-31.0) H 12/28/17 06:18 MCHC 33.8 g/dL (33.0-37.0) 12/28/17 06:18 RDW 13.1 % (11.5-14.5) 12/28/17 06:18 Plt Count 238 K/uL (130-400) 12/28/17 06:18 MPV 8.9 fL (7.2-11.7) 12/28/17 06:18 Neut % (Auto) 84.0 % (50.0-75.0) H 12/26/17 06:02 Lymph % (Auto) 6.6 % (20.0-40.0) L 12/26/17 06:02 [place] % (Auto) 8.2 % (0.0-10.0) 12/26/17 06:02 Eos % (Auto) 0.8 % (0.0-4.0) 12/26/17 06:02 Baso % (Auto) 0.4 % (0.0-2.0) 12/26/17 06:02 Neut # (Auto) 16.1 K/uL (1.8-7.0) H 12/26/17 06:02 Lymph # (Auto) 1.3 K/uL (1.0-4.3) 12/26/17 06:02 [place] # (Auto) 1.6 K/uL (0.0-0.8) H 12/26/17 06:02 Eos # (Auto) 0.2 K/uL (0.0-0.7) 12/26/17 06:02 Baso # (Auto) 0.1 K/uL (0.0-0.2) 12/26/17 06:02 Neutrophils % (Manual) 80 % (50-75) H 12/26/17 06:02 Band Neutrophils % 2 % (0-2) 12/26/17 06:02 Lymphocytes % (Manual) 9 % (20-40) L 12/26/17 06:02 Monocytes % (Manual) 9 % (0-10) 12/26/17 06:02 Platelet Estimate Normal (NORMAL) 12/26/17 06:02 Poikilocytosis (manual Slight 12/25/17 06:39 Anisocytosis (manual) Slight 12/25/17 06:39 Tear Drop Cells Slight 12/25/17 06:39 PT 16.4 SECONDS (9.7-12.2) H 12/25/17 06:39 INR 1.4 12/25/17 06:39 APTT 34 SECONDS (21-34) 12/25/17 06:39 Sodium 139 mmol/L (132-148) 12/28/17 06:18 Potassium 3.2 mmol/L (3.6-5.2) L 12/28/17 06:18 Chloride 106 mmol/L (98-107) 12/28/17 06:18 Carbon Dioxide 25 mmol/L (22-30) 12/28/17 06:18 Anion Gap 12 (10-20) 12/28/17 06:18 BUN 8 mg/dL (7-17) 12/28/17 06:18 Creatinine 0.4 mg/dL (0.7-1.2) L 12/28/17 06:18 Est GFR ( Amer) > 60 12/28/17 06:18 Est GFR (Non-Af Amer) > 60 12/28/17 06:18 POC Glucose (mg/dL) 141 mg/dL (65-110) H 12/28/17 10:48 Random Glucose 99 mg/dL (65-105) 12/28/17 06:18 Hemoglobin A1c 6.3 % (4.2-6.5) 12/24/17 09:11 Calcium 7.1 mg/dl (8.6-10.4) L 12/28/17 06:18 Phosphorus 1.7 mg/dL (2.5-4.5) L 12/26/17 06:02 Magnesium 1.8 mg/dL (1.6-2.3) 12/26/17 06:02 Total Bilirubin 0.7 mg/dL (0.2-1.3) 12/28/17 06:18 AST 16 U/L (14-36) 12/28/17 06:18 ALT 29 U/L (9-52) 12/28/17 06:18 Alkaline Phosphatase 55 U/L (38-126) 12/28/17 06:18 Total Protein 5.4 g/dL (6.3-8.3) L 12/28/17 06:18 Albumin 2.4 g/dL (3.5-5.0) L 12/28/17 06:18 Globulin 3.0 gm/dL (2.2-3.9) 12/28/17 06:18 Albumin/Globulin Ratio 0.8 (1.0-2.1) L 12/28/17 06:18 Lipase 140 U/L (23-300) 12/24/17 01:33 Urine Color Yellow (YELLOW) 12/24/17 05:07 Urine Clarity Hazy (Clear) 12/24/17 05:07 Urine pH 5.0 (5.0-8.0) 12/24/17 05:07 Ur Specific [place] 1.033 (1.003-1.030) H 12/24/17 05:07 Urine Protein Negative mg/dL (NEGATIVE) 12/24/17 05:07 Urine Glucose (UA) Normal mg/dL (Normal) 12/24/17 05:07 Urine Ketones Trace mg/dL (NEGATIVE) 12/24/17 05:07 Urine Blood Negative (NEGATIVE) 12/24/17 05:07 Urine Nitrate Negative (NEGATIVE) 12/24/17 05:07 Urine Bilirubin Negative (NEGATIVE) 12/24/17 05:07 Urine Urobilinogen Normal mg/dL (0.2-1.0) 12/24/17 05:07 Ur Leukocyte Esterase 2+ [place]/uL (Negative) H 12/24/17 05:07 Urine WBC (Auto) 57 /hpf (0-5) H 12/24/17 05:07 Urine RBC (Auto) 1 /hpf (0-3) 12/24/17 05:07 Ur Squamous Epith Cells < 1 /hpf (0-5) 12/24/17 05:07 Urine Bacteria Rare (<OCC) 12/24/17 05:07 Hyaline Casts 6-10 /lpf (0-2) H 12/24/17 05:07 Granular Casts (Auto) 1 /lpf (0-1) 12/24/17 05:07 Attending/Attestation - Attestation I have personally seen and examined this patient.: Yes I have fully participated in the care of the patient.: Yes I have reviewed all pertinent clinical information, including history, physical exam and plan: Yes Notes (Text): 12/28/17 15:32 Medical attending: Patient was seen and examined by me, agree with the above note by the medical records administrator. The patient's family member was present at bedside, we saw her twice today once earlier in the morning. And then later again in the afternoon As mentioned previously she status post cholecystitis and has been on IV abx We reviewed the chest x-ray that we got last night shows that she does have some excessive fluid buildup on her lungs. This is probably from her getting fluid during the surgery. So we will administer some IV Lasix before she goes today. Otherwise she appears to be doing well, she tolerated her diet well, she had 2 bowel movements as well. She was not having any fevers no chills lab work was stable as well. She can resume PO Eliquis for anticoagulation for atrial fibrillation Thank you very much, Jeanmarie Ramirez
--- NOTE | 2017-12-28 14:29 | CP.PCM.PN ---
<Jenni Walters - Last Filed: 12/28/17 14:37> Subjective - Date & Time of Evaluation Date of Evaluation: 12/27/17 Time of Evaluation: 14:27 - Subjective Subjective: Progress Note for Dr. Ramirez Patient seen and examined at bedside s/p cholecystectomy POD#1. Patient had fluids discontinued. Patient complained of gases and eructation. Patient has no diarrhea, bowel movement. Patient denies fever, chills, nausea, vomiting Objective - Vital Signs/Intake and Output Vital Signs (last 24 hours): Temp Pulse Resp BP Pulse Ox 97.6 F 88 20 128/78 95 12/28/17 08:00 12/28/17 08:00 12/28/17 08:00 12/28/17 12:39 12/28/17 08:00 Intake and Output: 12/28/17 12/28/17 06:59 18:59 Intake Total 1820 Balance 1820 - Medications Medications: Current Medications Acetaminophen (Tylenol 325mg Tab) 650 mg PO Q6 PRN PRN Reason: Fever >100.4 F Last Admin: 12/25/17 22:44 Dose: 650 mg Apixaban (Eliquis) 2.5 mg PO BID MARCO Last Admin: 12/28/17 10:48 Dose: 2.5 mg Dextrose (Dextrose 50% Inj) 0 ml IVP .STAT PRN; Protocol PRN Reason: Hypoglycemia Protocol Dextrose (Glutose 15) 15 gm PO .ONCE PRN; Protocol PRN Reason: Hypoglycemia Protocol Glucagon (Glucagen Diagnostic Kit) 1 mg IM .STAT PRN; Protocol PRN Reason: Hypoglycemia Protocol Hydromorphone HCl (Dilaudid) 0.5 mg IVP Q6H PRN PRN Reason: Pain, severe (8-10) Last Admin: 12/28/17 10:48 Dose: 0.5 mg Piperacillin Sod/Tazobactam Sod (Zosyn 3.375 Gm Iv Premix) 3.375 gm in 50 mls @ 100 mls/hr IVPB Q8H MARCO PRN Reason: Protocol Last Admin: 12/28/17 13:45 Dose: 100 mls/hr Metronidazole 250 mg/ (Miscellaneous) 50 mls @ 100 mls/hr IVPB Q8 MARCO PRN Reason: Protocol Last Admin: 12/28/17 13:46 Dose: 100 mls/hr Insulin Human Regular (Novolin R) 0 unit SC ACHS MARCO PRN Reason: Protocol Last Admin: 12/28/17 12:28 Dose: Not Given Ondansetron HCl (Zofran Inj) 4 mg IVP Q4 PRN PRN Reason: Nausea/Vomiting Last Admin: 12/28/17 00:36 Dose: 4 mg Oxycodone/Acetaminophen (Percocet 5/325 Mg Tab) 1 tab PO Q6H PRN PRN Reason: Pain, moderate (4-7) Stop: 12/30/17 09:29 Last Admin: 12/27/17 22:37 Dose: 1 tab Pantoprazole Sodium (Protonix Inj) 40 mg IVP DAILY [facility] Last Admin: 12/28/17 10:47 Dose: 40 mg - Labs Labs: 12/28/17 06:18 12/28/17 06:18 PT 16.4 SECONDS (9.7-12.2) H 12/25/17 06:39 INR 1.4 12/25/17 06:39 APTT 34 SECONDS (21-34) 12/25/17 06:39 - Constitutional Appears: Non-toxic, No Acute Distress - Head Exam Head Exam: ATRAUMATIC, NORMAL INSPECTION, NORMOCEPHALIC - Eye Exam Eye Exam: EOMI, Normal appearance Pupil Exam: NORMAL ACCOMODATION, PERRL - ENT Exam ENT Exam: Mucous Membranes Moist, Normal Exam - Neck Exam Neck Exam: Full ROM - Respiratory Exam Respiratory Exam: Rales, NORMAL BREATHING PATTERN - Cardiovascular Exam Cardiovascular Exam: REGULAR RHYTHM, +S1, +S2 - GI/Abdominal Exam GI & Abdominal Exam: Soft, Tenderness (right upper quadrant and sites of incisions), Normal Bowel Sounds. absent: Guarding, Rigid - Extremities Exam Extremities Exam: Full ROM, Normal Capillary Refill. absent: Pedal Edema - Back Exam Back Exam: Full ROM, NORMAL INSPECTION - Neurological Exam Neurological Exam: Alert, Awake, CN II-XII Intact, Oriented x3. absent: Normal Gait - Psychiatric Exam Psychiatric exam: Flat Affect, Normal Affect, Normal Mood - Skin Skin Exam: Dry, Intact, Normal Color, Warm Assessment and Plan - Assessment and Plan (Free Text) Assessment: 77F with history of atrial fibrillation, HTN, diabetes who presents with acute cholecystitis s/p cholecystectomy Potassium and Phosphorous repleted acute cholecystitis, no choledocholithiasis CT abdomen/pelvis: no ductal dilatation, gallbladder slightly distended 11mm stone at gallbladder neck US abdomen: 12mm stone at gallbladder neck. pericholecystic fluid and gallbladder wall thickening for surgery today 12/26, tolerated procedure well, purulent gallbladder was removed. Zosyn, Flagyl Per Surgery, hold anticoagulation until AM CBC fluid overload CXR discontinued fluids lasix DM Novolin R SC ACHS Hypoglycemia protocol in place Prophylaxis Zofran 4mg IVP Q4H PRN Protonix 40mg IVP QD Fever: Tylenol 650 mg PO Q6H NS @ 100cc/hr, discontinued Jenni Romeo discussed with attending <Jeanmarie Ramirez H - Last Filed: 12/28/17 15:29> Objective - Vital Signs/Intake and Output Vital Signs (last 24 hours): Temp Pulse Resp BP Pulse Ox 97.6 F 88 20 128/78 95 12/28/17 08:00 12/28/17 08:00 12/28/17 08:00 12/28/17 12:39 12/28/17 08:00 Intake and Output: 12/28/17 12/28/17 06:59 18:59 Intake Total 1820 1040 Balance 1820 1040 - Medications Medications: Current Medications Acetaminophen (Tylenol 325mg Tab) 650 mg PO Q6 PRN PRN Reason: Fever >100.4 F Last Admin: 12/25/17 22:44 Dose: 650 mg Apixaban (Eliquis) 2.5 mg PO BID [facility] Last Admin: 12/28/17 10:48 Dose: 2.5 mg Dextrose (Dextrose 50% Inj) 0 ml IVP .STAT PRN; Protocol PRN Reason: Hypoglycemia Protocol Dextrose (Glutose 15) 15 gm PO .ONCE PRN; Protocol PRN Reason: Hypoglycemia Protocol Glucagon (Glucagen Diagnostic Kit) 1 mg IM .STAT PRN; Protocol PRN Reason: Hypoglycemia Protocol Piperacillin Sod/Tazobactam Sod (Zosyn 3.375 Gm Iv Premix) 3.375 gm in 50 mls @ 100 mls/hr IVPB Q8H [place] PRN Reason: Protocol Last Admin: 12/28/17 13:45 Dose: 100 mls/hr Metronidazole 250 mg/ (Miscellaneous) 50 mls @ 100 mls/hr IVPB Q8 [place] PRN Reason: Protocol Last Admin: 12/28/17 13:46 Dose: 100 mls/hr Insulin Human Regular (Novolin R) 0 unit SC ACHS MARCO PRN Reason: Protocol Last Admin: 12/28/17 12:28 Dose: Not Given Ondansetron HCl (Zofran Inj) 4 mg IVP Q4 PRN PRN Reason: Nausea/Vomiting Last Admin: 12/28/17 00:36 Dose: 4 mg Oxycodone/Acetaminophen (Percocet 5/325 Mg Tab) 1 tab PO Q6H PRN PRN Reason: Pain, moderate (4-7) Stop: 12/30/17 09:29 Last Admin: 12/27/17 22:37 Dose: 1 tab Pantoprazole Sodium (Protonix Inj) 40 mg IVP DAILY [facility] Last Admin: 12/28/17 10:47 Dose: 40 mg - Labs Labs: 12/28/17 06:18 12/28/17 06:18 PT 16.4 SECONDS (9.7-12.2) H 12/25/17 06:39 INR 1.4 12/25/17 06:39 APTT 34 SECONDS (21-34) 12/25/17 06:39 Attending/Attestation - Attestation I have personally seen and examined this patient.: Yes I have fully participated in the care of the patient.: Yes I have reviewed all pertinent clinical information, including history, physical exam and plan: Yes Notes (Text): 12/28/17 15:28 Medical attending: Patient was seen and examined by me, agrees the above note by the medical technologist. The patient's family member was present at bedside, we saw her twice today once earlier in the morning. As mentioned previously she status post cholecystitis. We reviewed the chest x-ray that we got last night shows that she does have some excessive fluid buildup on her lungs. This is probably from her getting fluid during the surgery. So we will administer some IV Lasix before she goes today. Otherwise she appears to be doing well, she tolerated her diet well, she had 2 bowel movements as well. She was not having any fevers no chills lab work was stable as well. She can resume PO Eliquis for anticoagulation for atrial fibrillation Thank you very much, Jeanmarie Ramirez
--- NOTE | 2017-12-28 21:16 | CP.PCM.PN ---
Subjective - Date & Time of Evaluation Date of Evaluation: 12/28/17 Time of Evaluation: 11:10 - Subjective Subjective: Patient seen and evaluated Denies chest pain and dyspnea Physical Examination - Additional Findings Additional findings: - Constitutional Appears: Non-toxic, No Acute Distress - Head Exam Head Exam: ATRAUMATIC, NORMAL INSPECTION, NORMOCEPHALIC - Eye Exam Eye Exam: EOMI, Normal appearance Pupil Exam: NORMAL ACCOMODATION, PERRL - ENT Exam ENT Exam: Mucous Membranes Moist, Normal Exam - Respiratory Exam Respiratory Exam: Clear to Ausculation Bilateral, NORMAL BREATHING PATTERN. absent: Accessory Muscle Use - Cardiovascular Exam Cardiovascular Exam: REGULAR RHYTHM, +S1, +S2; absent: JVD, Murmur - GI/Abdominal Exam GI & Abdominal Exam: Soft, Tenderness (kena-incisional). absent: Guarding, Rigid, Rebound - bandages C/D/I - Extremities Exam Extremities Exam: Full ROM. absent: Pedal Edema - Back Exam Back Exam: Full ROM, NORMAL INSPECTION - Neurological Exam Neurological Exam: Alert, Awake, CN II-XII Intact, Oriented x3 - Psychiatric Exam Psychiatric exam: Normal Affect, Normal Mood - Skin Skin Exam: Dry, Intact, Normal Color, Warm Objective - Vital Signs/Intake and Output Vital Signs (last 24 hours): Temp Pulse Resp BP Pulse Ox 97.6 F 88 20 128/78 95 12/28/17 08:00 12/28/17 08:00 12/28/17 08:00 12/28/17 12:39 12/28/17 08:00 Intake and Output: 12/28/17 12/29/17 18:59 06:59 Intake Total 1040 Balance 1040 - Labs Labs: 12/28/17 06:18 12/28/17 06:18 PT 16.4 SECONDS (9.7-12.2) H 12/25/17 06:39 INR 1.4 12/25/17 06:39 APTT 34 SECONDS (21-34) 12/25/17 06:39 Assessment and Plan - Assessment and Plan (Free Text) Assessment: 77F with history of atrial fibrillation, HTN, diabetes who presents with acute cholecystitis s/p cholecystectomy Resume [facility] F/U Cardio clinic in 2-3 weeks
== END 2017-12-28 18:10 | disposition home or self-care (01) | DRG 419 ==
LOC: C.ER 00:38 → C.9E 07:50 → C.3T 08:46
PROVIDERS: ADMIT Hospitalist; ATTEND Hospitalist
PROC: 0FT44ZZ Resection of Gallbladder, Percutaneous Endoscopic Approach (ICD-10-PCS; principal; 2017-12-26 07:30)
DX: K80.00 Calculus of gallbladder with acute cholecystitis without obstruction (principal); E87.70 Fluid overload, unspecified; I48.91 Unspecified atrial fibrillation; E11.9 Type 2 diabetes mellitus without complications; K83.8 Other specified diseases of biliary tract; D12.0 Benign neoplasm of cecum; E78.00 Pure hypercholesterolemia, unspecified; I10 Essential (primary) hypertension; N20.0 Calculus of kidney; K21.9 Gastro-esophageal reflux disease without esophagitis; K57.90 Diverticulosis of intestine, part unspecified, without perforation or abscess without bleeding; E78.5 Hyperlipidemia, unspecified; M81.0 Age-related osteoporosis without current pathological fracture; M06.9 Rheumatoid arthritis, unspecified; Z90.710 Acquired absence of both cervix and uterus; Z98.51 Tubal ligation status; Z86.73 Personal history of transient ischemic attack (TIA), and cerebral infarction without residual deficits; Z79.4 Long term (current) use of insulin

== ENCOUNTER 2018-10-03 06:53 | Day surgery (SDC) | payer MEDICARE, MEDICAID ==
[2018-10-03] MEDS ORDERED: Propofol 10 mg/ml Inj (20 ML) ONE (09:15)
[2018-10-03 10:02] VITALS: TEMP 97.7; O2SAT 100
[2018-10-03 10:59] VITALS: BP 126/59; PULSE 81; RESP 18
== END 2018-10-03 11:15 | disposition home or self-care (01) ==
LOC: C.ENDO 06:53
PROVIDERS: ATTEND Internal Medicine Gastroenterology
DX: K21.0 Gastro-esophageal reflux disease with esophagitis (principal); K29.50 Unspecified chronic gastritis without bleeding; K44.9 Diaphragmatic hernia without obstruction or gangrene; I10 Essential (primary) hypertension; E11.9 Type 2 diabetes mellitus without complications; I48.91 Unspecified atrial fibrillation; Z87.19 Personal history of other diseases of the digestive system; Z79.84 Long term (current) use of oral hypoglycemic drugs; Z79.899 Other long term (current) drug therapy
CPT/HCPCS: 43239; 88305; J2001; J2704; J7040

== ENCOUNTER 2019-01-04 11:21 | Outpatient (CLI) | payer MEDICARE, MEDICAID | END 2019-01-04 11:22 | disposition home or self-care (01) | LOC: C.MAMMO 11:21 | DX: Z12.31 Encounter for screening mammogram for malignant neoplasm of breast (principal) ==